=== PATIENT | female | born 1970 | race Two or more races ===

== ENCOUNTER 2020-05-06 13:32 | Inpatient (IN) | payer MEDICAID, OTHER ==
[~2020-05-06] VITALS: Ht 162.6 cm; Wt 166.0 kg
[~2020-05-06 13:32] MED LIST: Folic Acid PO; LACT1CAP72 PO; LEVO175T2 PO; METF-440 PO; PANT40TA2 PO; RISP0.5T9 PO
--- NOTE | 2020-05-06 13:32 | NUR ---
PT BIBRA FROM [facility] C/O CHEST PAIN WHILE ON DIALYSIS. PT IS AAOX3, NOT IN RESPIRATORY DISTRESS, HOOKED TO OFFICE ELECTRICIAN, KEPT RESTED AND COMFORTABLE. WILL CONTINUE TO MONITOR.
--- NOTE | 2020-05-06 13:35 | NUR ---
PT SEEN AND EXAMINED BU .
--- NOTE | 2020-05-06 13:40 | NUR ---
RT AT BEDSIDE FOR VENT SET UP.
--- NOTE | 2020-05-06 13:45 | NUR ---
IV LINE ESTABLISHED BLOOD DRAWN AND SENT TO LAB.
[2020-05-06 13:48] LABS: BASOPHILS % (AUTO) 0.7 % (0.0-2.0); EOSINOPHILS % (AUTO) 4.4 % (0.0-6.0); HEMATOCRIT 36 % (33-45); HEMOGLOBIN 11.2 g/dL (11.5-14.8); LYMPHOCYTES # (AUTO) 1.2 /CMM (0.8-4.8); LYMPHOCYTES % (AUTO) 22.2 % (20.0-44.0); MEAN CORPUSCULAR HGB CONC 32 g/dl (31.0-36.0); MEAN CORPUSCULAR VOLUME 99 fL (82-100); MONOCYTES # (AUTO) 0.3 /CMM (0.1-1.30); NEUTROPHILS # (AUTO) 3.6 /CMM (1.8-8.9); NEUTROPHILS % (AUTO) 67.7 % (43.0-81.0); PLATELET COUNT (AUTO) 203 /CMM (150-450); WHITE BLOOD COUNT (AUTO) 5.3 K/uL (4.3-11.0)
[2020-05-06 13:57] LABS: CALCIUM, SERUM 8.3 mg/dL (8.5-10.1); CARBON DIOXIDE 23 mmol/L (21-32); CHLORIDE 97 mmol/L (98-107); CREATININE 4.5 mg/dL (0.6-1.3); GLUCOSE 155 mg/dL (74-106); POTASSIUM 5.1 mmol/L (3.5-5.1); SODIUM SERUM 131 mmol/L (136-145); UREA NITROGEN, BLOOD 37 mg/dL (7-18)
--- NOTE | 2020-05-06 14:00 | NUR ---
RT RECD PT FROM DIALYSIS CAME IN FOR CP TRACHED SHILEY 6 INTACT + SECURED WITH SPEAKING VALVE ON PT AWAKE ALERT ORIENTED SPEAKING ON A VENT RECD ON FOLLOWING SETTING OF AC 20 500 +5 3LM PLACED ON [facility] VENT WITH FACILITY ORDERED SETTING CALLED TO VERIFY WITH CHART OF AC 20 450 +5 40% PLACED ON VENT SPEAKING MODE WITH NO PEEP PER VENT SETTINGS DISABLED LOW VOLUME ALARMS DUE TO PT SPEAKING + PMV ON. OTHER ALARMS ON AND AUDIBLE BAG AND MASK AT HOB NO RESP DISTRESS ATT WILL CONT TO MONITOR Addendum: 05/06/20 at 1536 by PARISH JOSE RT Amended: Links added.
--- NOTE | 2020-05-06 14:04 | NUR ---
SHIRT SORTER AT BEDSIDE FOR XRAY.
[2020-05-06 14:10] LABS: B-TYPE NATRIURETIC PEPTIDE 7073 PG/ML (0-125)
--- NOTE | 2020-05-06 14:10 | NUR ---
AT BEDSIDE FOR EVAL.
[2020-05-06] MEDS ORDERED: NITROGLYCERIN PACKET 1 GM PACKET TD ONE (14:30)
[2020-05-06] MEDS ORDERED: ASPIRIN 325 MG TABLET PO ONE (14:30)
[2020-05-06] MEDS ORDERED: HEPA50007 SQ (14:31)
[2020-05-06] MEDS ORDERED: DIPH25CA51 PO (14:31)
[2020-05-06] MEDS ORDERED: HYDR-4384 PO (14:31)
[2020-05-06] MEDS ORDERED: ESCI10TA PO (14:31)
[2020-05-06] MEDS ORDERED: ACET-868 PO (14:31)
[2020-05-06] MEDS ORDERED: EPOE1000 SQ (14:31)
[2020-05-06] MEDS ORDERED: BISA10SU11 RC (14:31)
[2020-05-06] MEDS ORDERED: LISI-603 PO (14:31)
[2020-05-06] MEDS ORDERED: METO25TA20 PO (14:31)
[2020-05-06] MEDS ORDERED: COLL30OI TP (14:31)
[2020-05-06] MEDS ORDERED: AMIN30LI2 PO (14:31)
[2020-05-06] MEDS ORDERED: CRAN450C PO (14:31)
[2020-05-06] MEDS ORDERED: FERR325T23 PO (14:31)
[2020-05-06] MEDS ORDERED: SEVE800T28 PO (14:31)
[2020-05-06] MEDS ORDERED: NA P133E RC (14:31)
[2020-05-06] MEDS ORDERED: FAMO20TA8 PO (14:31)
[2020-05-06] MEDS ORDERED: LORA-259 PO (14:31)
[2020-05-06] MEDS ORDERED: FOLI0.8T23 PO (14:31)
[2020-05-06] MEDS ORDERED: LEVO175T7 PO (14:31)
[2020-05-06] MEDS ORDERED: HYDR-4354 PO (14:31)
[2020-05-06] MEDS ORDERED: IPRA3AMP23 IH ×2 (14:31)
[2020-05-06] MEDS ORDERED: INSU100V27 SQ (14:31)
[2020-05-06] MEDS ORDERED: POLY17PO4 PO (14:31)
[2020-05-06] MEDS ORDERED: ASPIRIN 325 MG TABLET ONE (14:45)
[2020-05-06] MEDS ORDERED: NITROGLYCERIN PACKET 1 GM PACKET ONE (14:45)
--- NOTE | 2020-05-06 15:12 | NUR ---
COVID SWAB OBTAINED AND SENT TO LAB.
--- NOTE | 2020-05-06 15:20 | NUR ---
called [facility] for panel admission
[2020-05-06] MEDS ORDERED: ACETAMINOPHEN 325 MG TABLET PO PRN (15:30)
[2020-05-06] MEDS ORDERED: LORAZEPAM 0.5 MG TABLET PO PRN (15:30)
[2020-05-06] MEDS ORDERED: ONDANSETRON HCL/PF 4 MG/2 ML VIAL IVP PRN (15:30)
[2020-05-06] MEDS ORDERED: ZOLPIDEM TARTRATE 5 MG TABLET PO PRN (15:30)
[2020-05-06] MEDS ORDERED: Z GUARD REMEDY 2 OZ OINT TP PRN (15:30)
--- NOTE | 2020-05-06 16:09 | NUR ---
NEGATIVE COVID RESULT
--- NOTE | 2020-05-06 16:47 | NUR ---
TELE OVERFLOW 264
[2020-05-06] MEDS: METOPROLOL TARTRATE 25 MG TABLET PO SCH (17:00)
--- NOTE | 2020-05-06 18:00 | NUR ---
REPORT GIVEN TO MAX KING FOR PANTERA.
[2020-05-06 18:53] VITALS: BP 109/37
--- NOTE | 2020-05-06 19:04 | NUR ---
RN NOTE 1845: Received patient from ER, with trache to vent. No respiratory distress noted. VS taken, stable, afebrile. RAC PIV intact. Patient is A/Ox3. RO ACS, no CP at this time, awaiting repeat Trop. HD nurse in the unit, patient to have HD tomorrow. Noted 385 lbs, [facility] to bed with multiple people, patient tolerated. Endorsed care to incoming nurse for full assessment and admitting protocol.
--- NOTE | 2020-05-06 19:10 | NUR ---
RN OPENING NOTES RECEIVED PT IN BED. FULL CODE. A/O X3. ON TRACH AND MECHANICAL VENTILATION TOLERATING SETTINGS WELL. NO SOB OR RESPIRATORY DISTRESS NOTED. ISOLATION PRECAUTIONS IN PLACE FOR R/O COVID. SB ON TELE MONITOR. RCW HD CATH AND RAC#20 INTACT AND FLUSHED. PER AM RN 1700 AND 1800 MEDS NOT GIVEN, WILL GIVE. SAFETY MEASURES IN PLACE. WILL CONTINUE TO MONITOR.
--- NOTE | 2020-05-06 19:20 | NUR ---
RN NOTE CALLED PHARMACY REGARDING 1700 AND 1800 MEDS BEING GIVEN LATE DUE TO PT NOT BEING IN UNIT. PHARMACY SAID OK TO GIVE LATE.
--- NOTE | 2020-05-06 19:38 | NUR ---
RN NOTE NO DIET ORDER. PAGED EPIC TELECOMMUNICATIONS OFFICER. SPOKE WITH TAPAN WHO ORDERED CARDIAC DIET. ORDER NOTED AND CARRIED OUT.
[2020-05-06] MEDS: FERROUS SULFATE (325 MG) 325 MG/TAB TABLET PO SCH (19:51)
[2020-05-06] MEDS: SEVELAMER CARBONATE 800 MG TABLET PO SCH (19:52)
--- NOTE | 2020-05-06 19:53 | NUR ---
RN NOTE 1700 DOSE OF METOPROLOL HELD DUE TO LOW HR OF 55.
[2020-05-06 20:00] VITALS: BP 139/67
--- NOTE | 2020-05-06 20:42 | NUR ---
RN NOTE: Pt stated she wants to leave AMA. Explained risks of leaving AMA and still wants to leave. Explained that she needs to arrange transport in order to leave. CN and distribution warehouse manager aware.
[2020-05-06] MEDS: HEPARIN SODIUM, PORCINE 5000 UNITS/1 ML VIAL SQ SCH (21:20)
[2020-05-06] MEDS: ATORVASTATIN 10 MG TABLET PO SCH (21:20)
--- NOTE | 2020-05-07 00:19 | NUR ---
RN NOTE PT REFUSED BP CUFF FOR 0000 VITALS. EXPLAINED RISKS AND IMPORTANCE OF MONITORING BP. PT NON COMPLIANT. WILL CONTINUE TO MONITOR.
[2020-05-07 02:08] LABS: BASOPHILS % (AUTO) 0.6 % (0.0-2.0); EOSINOPHILS % (AUTO) 4.1 % (0.0-6.0); HEMATOCRIT 34 % (33-45); HEMOGLOBIN 10.9 g/dL (11.5-14.8); LYMPHOCYTES # (AUTO) 1.3 /CMM (0.8-4.8); LYMPHOCYTES % (AUTO) 23.8 % (20.0-44.0); MEAN CORPUSCULAR HGB CONC 32 g/dl (31.0-36.0); MEAN CORPUSCULAR VOLUME 97 fL (82-100); MONOCYTES # (AUTO) 0.3 /CMM (0.1-1.30); MONOCYTES % (AUTO) 5.1 % (2.0-12.0); NEUTROPHILS # (AUTO) 3.7 /CMM (1.8-8.9); NEUTROPHILS % (AUTO) 66.4 % (43.0-81.0); PLATELET COUNT (AUTO) 211 /CMM (150-450); RED BLOOD CELL COUNT(AUTO) 3.51 MIL/uL (4.0-5.2); WHITE BLOOD COUNT (AUTO) 5.5 K/uL (4.3-11.0)
[2020-05-07 02:20] LABS: CALCIUM, SERUM 7.8 mg/dL (8.5-10.1); CREATININE 5.2 mg/dL (0.6-1.3); MAGNESIUM 1.8 mg/dL (1.8-2.4); PHOSPHORUS 4.9 mg/dL (2.5-4.9); POTASSIUM 5.1 mmol/L (3.5-5.1)
[2020-05-07 04:00] VITALS: BP 136/74
--- NOTE | 2020-05-07 04:48 | NUR ---
RN NOTE: Transferred pt via ACLS protocol to room 102 w/ RT. Pt in stable condition, hooked up to tele monitor and oriented to room.
[2020-05-07] MEDS: HEPARIN SODIUM, PORCINE 5000 UNITS/1 ML VIAL SQ SCH ×3 (05:33→21:05)
--- NOTE | 2020-05-07 06:45 | NUR ---
RN CLOSING NOTE PT IS CURRENTLY RESTING IN BED. VSS. NO SIGNS OF SOB OR RESPIRATORY DISTRESS. NO SIGNIFICANT CHANGES. IV SITES KEPT CLEAN AND DRY. NEEDS ATTENDED. WILL ENDORSE ONCOMING NURSE FOR CONTINUATION OF CARE. MEDS GIVEN ORDERED.
--- NOTE | 2020-05-07 07:15 | NUR ---
RN OPENING NOTES RECEIVED PT RESTING IN BED. A/O X3. ON TRACH AND MECHANICAL VENTILATION SHAILAY:6, AC: 20, TV: 450, FIO2: 50% PEEP: 5. NO SOB OR RESPIRATORY DISTRESS NOTED. SR ON TELE MONITOR. WITH RCW HD CATH. RAC #20 DRY AND PATENT. ISOLATION PRECAUTIONS IN PLACE FOR R/O COVID. SAFETY MEASURES OBSERVED. CALL LIGHT WITHIN REACH, BED LOCKED AND AT LOWEST POSITION. WILL CONTINUE TO MONITOR
[2020-05-07 08:00] VITALS: BP 129/69
[2020-05-07] MEDS: SEVELAMER CARBONATE 800 MG TABLET PO SCH ×4 (08:00→18:26)
[2020-05-07] MEDS: FAMOTIDINE (20 MG) 20 MG TABLET PO SCH (08:40)
[2020-05-07] MEDS: FERROUS SULFATE (325 MG) 325 MG/TAB TABLET PO SCH ×2 (08:40→17:05)
[2020-05-07] MEDS: POLYETHYLENE GLYCOL 3350 17 GM POWD.PACK PO SCH (08:40)
[2020-05-07] MEDS: ESCITALOPRAM OXALATE (10 MG) 10 MG TABLET PO SCH (08:41)
[2020-05-07] MEDS: LEVOTHYROXINE SODIUM 175 MCG TABLET PO SCH (08:41)
[2020-05-07] MEDS: ASPIRIN 81 MG TAB.CHEW PO SCH (08:42)
--- NOTE | 2020-05-07 09:01 | NUR ---
WOUND CARE CONSULT: REVIEWED CHART, NURSING DOCUMENTATION AND PHOTOS WHICH INDICATE SCARRING TO SACRAL/BUTTOCKS/THIGH AREAS AND OPEN WOUND TO CHEST/ABDOMEN AREA, PRESENT ON ADMISSION. RECOMMEND SURGICAL CONSULT. DR RAMIREZ NOTIFIED OF CONSULT REQUEST. FIRST STEP LOW AIRLOSS MATTRESS IS ON ORDER. RECOMMENDATIONS MADE FOR SKIN PROTECTION. DISCUSSED WITH NURSING STAFF. MD IN AGREEMENT WITH PLAN OF CARE.
[2020-05-07] MEDS: LISINOPRIL (20MG) 20 MG TABLET PO SCH (09:43)
[2020-05-07] MEDS: METOPROLOL TARTRATE 25 MG TABLET PO SCH ×2 (09:44→17:06)
--- NOTE | 2020-05-07 11:20 | NUR ---
RN NOTES SEEN BY MS. PATINO, NO NEW ORDERS AT THIS TIME
[2020-05-07 12:00] VITALS: BP 120/61
--- NOTE | 2020-05-07 13:53 | NUR ---
DR ARGUELLO ORDERED TO TRANSFER PATIENT TO
--- NOTE | 2020-05-07 15:20 | NUR ---
RN NOTES INFORMED MS. PATINO REGARDING PT REFUSING AFTERNOON MEDICATION SUCH HEPARIN AND RENVELA. ALSO INFORMED ABOUT POSSIBLE TRANSFER TO [facility]. NO NEW ORDERS
[2020-05-07 16:00] VITALS: BP 105/56
--- NOTE | 2020-05-07 16:42 | NUR ---
RN NOTES DIALYSIS DONE. 2L OUT TOLERATED WELL. LATEST BP: 115/45. WILL CONTINUE TO MONITOR
--- NOTE | 2020-05-07 18:12 | NUR ---
RT at 17:45 Patient is transported from [facility] to 3rd floor Room 320-2. Ambu bag and spare trach brought along on transport and left at bedside in room 320-2. Pt alert and verbal. No respiratory distress or SOB noted at this time. Ventilator plugged into red socket. Alarms on and audible. Addendum: 05/07/20 at 1818 by MICHAEL GASTELUM RT Amended: Links added.
[2020-05-07] MEDS: NEOMY SULF/BACITRAC ZN/POLY 15 GM TUBE TP SCH (18:14)
[2020-05-07 18:15] VITALS: BP 125/55
--- NOTE | 2020-05-07 18:15 | NUR ---
TRANSFERRED TO ROOM 320-2 ASSISTED BY 2 RN, SWITCHBOARD CLERK AND RT VIA ACLS PROTOCOL. TOLERATED WELL. GAVE BEDSIDE REPORT TO HUMBERTO SANTANA.
--- NOTE | 2020-05-07 18:46 | NUR ---
CUSTOMS COMPLIANCE SPECIALIST NOTES PT TRANSFERRED FROM [facility] ROOM 102 TO ROOM 320-2 VIA HOSPITAL BED @ 1800 ACCOMPANIED BY [facility] RN EUN ROSE AND RESPIRATORY THERAPIST. PT IS A/O X3. ABLE TO MAKE NEEDS KNOWN, DENIES PAIN AT THIS TIME. HOB KEPT ELEVATED. PT ON MECHANICAL VENTILATOR WITH SHILEY #6 AT PRESCRIBED PARAMETERS OF AC 20, TV 450, FI02 40% AND PEEP 5, TOLERATING SETTINGS WELL WITH NO ACUTE DISTRESS NOTED. PT ON TELEMONITORING WITH CURRENT READING OF SR AND HR ON THE 60'S, NO C/O CARDIAC DISTRESS VOICED AT THIS TIME. HD CATHETER ON RCW IN PLACE, DRESSING C/D/I. IV SL NOTED AT RAC G# 20 INTACT, PATENT AND FLUSHES WELL. SAFETY MEASURES INITIATED: BED PLACED IN LOWEST LOCKED POSITION WITH SIDE-RAILS UP X3. BED ALARM ON AND CALL LIGHT WITHIN EASY REACH OF PT. CALLED [facility] BED FOR PT AND WAS TOLD THAT THEY WILL DELIVER THE BED TOMORROW. WILL ENDORSED TO CONTRACT DRIVER NURSE FOR PANTERA.
--- NOTE | 2020-05-07 19:50 | NUR ---
RAIL DETECTOR CAR OPERATOR OPENING NOTES RECEIVED PATIENT FROM MORNING SHIFT, ALERT AND ORIENTED X 3. VERBALLY RESPONSIVE AND ABLE TO FOLLOW DIRECTIONS. BREATHING REGULAR AND UNLABORED ON OXYGEN VIA MECHANICAL VENT. TRACH INTACT AND PATENT, LATEST SPO2 100%. ON CARDIAC MONITORING WITH NSR AT 70bpm. RIGHT AC20 IV LINE INTACT AND PATENT, FLUSHING WELL WITH NO BLEEDING OR S/S OF INFILTRATION ON SITE NOTED. RIGHT UPPER CHEST PERMACATH INTACT WITH NO BLEEDING SEEN. DENIES SUICIDAL IDEATION OR PAIN/DISCOMFORT AT THIS TIME. BED LOW AND LOCKED ON SEMI FOWLERS POSITION. CALL LIGHT IN REACH. WILL CONTINUE TO MONITOR.
[2020-05-07 20:00] VITALS: BP 120/59
[2020-05-07] MEDS: ATORVASTATIN 10 MG TABLET PO SCH (21:03)
--- NOTE | 2020-05-07 23:29 | NUR ---
RT NOTE Pt rec'd [facility] on [facility] on AC mode. Pt shows no signs of resp distress or sob. Trach is patent and secured. Pt awake and alert. Sx'd for thick small amt of yellow secretions. Alarms are set and audible. Ambu bag and emergency spare trach bedside. Vent plugged into red outlet. Will continue to monitor. Addendum: 05/07/20 at 2331 by RIVKA BRUNO RT Amended: Links added.
[2020-05-08] VITALS: BP 116/52
[2020-05-08 04:00] VITALS: BP 116/66
[2020-05-08] MEDS: HEPARIN SODIUM, PORCINE 5000 UNITS/1 ML VIAL SQ SCH ×2 (05:04→14:23)
--- NOTE | 2020-05-08 06:35 | NUR ---
LUMBER ESTIMATOR CLOSING NOTES PATIENT IN BED, ALERT AND ORIENTED X 3. AFEBRILE WITH NO S/S OF DISTRESS OBSERVED. TRACH INTACT AND PATENT CURRENT VENT SETTINGS TOLERATING WELL, LATEST SPO2 100%. MAINTAINED ON CARDIAC MONITORING WITH NSR AT 67bpm. RIGHT AC20 IV LINE PATENT AND FLUSHING WELL. NO COMPLAINTS OF PAIN/DISCOMFORT REPORTED THE WHOLE SHIFT. ON CONTACT ISOLATION FOR MRSA NARES, PROPER HAND WASHING AND ISOLATION PRECAUTIONS OBSERVED. BED LOW AND LOCKED ON SEMI FOWLERS POSITION. CALL LIGHT IN REACH. WILL ENDORSE TO MORNING SHIFT FOR PANTERA.
--- NOTE | 2020-05-08 07:30 | NUR ---
COAT REPAIR INSPECTOR NOTES PT IN BED, AWAKE, ALERT AND ORIENTED, RESPIRATIONS NORMAL, NOT IN DISTRESS, NO COMPLAINT OF PAIN OR ANY DISCOMFORT, CALL LIGHT WITHIN REACH, ASSISTED WITH BREAKFAST TRAY, KEPT COMFORTABLE.
--- NOTE | 2020-05-08 08:30 | NUR ---
KILN STACKER NOTES PT WOULD LIKE TO TAKE HER MORNING MEDS AT A LATER TIME.
[2020-05-08] MEDS: POLYETHYLENE GLYCOL 3350 17 GM POWD.PACK PO SCH (09:00)
[2020-05-08] MEDS: ESCITALOPRAM OXALATE (10 MG) 10 MG TABLET PO SCH (10:20)
[2020-05-08] MEDS: ASPIRIN 81 MG TAB.CHEW PO SCH (10:20)
[2020-05-08] MEDS: SEVELAMER CARBONATE 800 MG TABLET PO SCH ×3 (10:20→17:15)
[2020-05-08] MEDS: FAMOTIDINE (20 MG) 20 MG TABLET PO SCH (10:20)
[2020-05-08] MEDS: METOPROLOL TARTRATE 25 MG TABLET PO SCH ×2 (10:21→17:15)
[2020-05-08] MEDS: LEVOTHYROXINE SODIUM 175 MCG TABLET PO SCH (10:21)
[2020-05-08] MEDS: LISINOPRIL (20MG) 20 MG TABLET PO SCH (10:21)
[2020-05-08] MEDS: FERROUS SULFATE (325 MG) 325 MG/TAB TABLET PO SCH ×2 (10:24→17:15)
[2020-05-08] MEDS: NEOMY SULF/BACITRAC ZN/POLY 15 GM TUBE TP SCH (10:29)
--- NOTE | 2020-05-08 12:00 | NUR ---
SIGNAL MAINTAINER NOTES PT IN BED, AWAKE, ALERT AND ORIENTED, NO COMPLAINT OF PAIN OR ANY DISCOMFORT, NOT IN DISTRESS, SEEN BY DR. PATINO, DISCHARGE PLAN DISCUSSED WITH PT, VERBALIZED UNDERSTANDING, DUE MEDS GIVEN, PT TOLERATES CURRENT DIET.
[2020-05-08 17:15] VITALS: BP 131/62
--- NOTE | 2020-05-08 19:05 | NUR ---
CUT OFF SAW TENDER METAL NOTES PT IN BED, AWAKE, ALERT AND ORIENTED, NO COMPLAINT AT THIS TIME, RESPIRATIONS NORMAL, DISCHARGE AND MEDICATION INSTRUCTIONS PROVIDED TO PT, VERBALIZED UNDERSTANDING, REPORT GIVEN TO KEIRA SANTANA OF [facility], PM CARE PROVIDED, BELONGINGS ACCOUNTED FOR, DISCHARGE PHOTOS DONE, ONLY PARTIAL PHOTO TAKEN ON THE BUTTOCKS AND SACRAL AREA, PT UNABLE TO TOLERATE TURNING ON HER SIDE FOR A LONG TIME, AMBULANCE PERSONNEL ARRIVED WITH RT, PREPARING TO TRANSPORT PATIENT.
--- NOTE | 2020-05-08 19:16 | NUR ---
MACHINING ENGINEER NOTES PT PICKED UP BY AMBULANCE PERSONNEL VIA [facility], LEFT IN STABLE CONDITION, INDERJIT NURSE AT [facility] INFORMED.
== END 2020-05-08 19:20 | DRG 198 ==
LOC: ER 13:45 → ICU 17:08 → TELE1 05-07 03:37 → TELE 05-07 17:34
PROVIDERS: ADMIT Nurse Practitioner Acute Care; ATTEND Nurse Practitioner Acute Care
PROC: 5A1945Z Respiratory Ventilation, 24-96 Consecutive Hours (ICD-10-PCS; principal; 2020-05-06)
PROC: 5A1D70Z Performance of Urinary Filtration, Intermittent, Less than 6 Hours Per Day (ICD-10-PCS; 2020-05-07)
DX: I25.10 Atherosclerotic heart disease of native coronary artery without angina pectoris (principal); E03.9 Hypothyroidism, unspecified; E87.1 Hypo-osmolality and hyponatremia; F20.9 Schizophrenia, unspecified; E66.2 Morbid (severe) obesity with alveolar hypoventilation; E11.42 Type 2 diabetes mellitus with diabetic polyneuropathy; E11.22 Type 2 diabetes mellitus with diabetic chronic kidney disease; N18.6 End stage renal disease; Z99.2 Dependence on renal dialysis; I12.0 Hypertensive chronic kidney disease with stage 5 chronic kidney disease or end stage renal disease; D68.59 Other primary thrombophilia; J96.11 Chronic respiratory failure with hypoxia; Z59.0 Homelessness; Z79.4 Long term (current) use of insulin; Z99.11 Dependence on respirator [ventilator] status; Z79.899 Other long term (current) drug therapy; E53.8 Deficiency of other specified B group vitamins; D63.8 Anemia in other chronic diseases classified elsewhere; Z79.01 Long term (current) use of anticoagulants; Z79.51 Long term (current) use of inhaled steroids; N25.0 Renal osteodystrophy; R79.89 Other specified abnormal findings of blood chemistry; L89.159 Pressure ulcer of sacral region, unspecified stage; L89.329 Pressure ulcer of left buttock, unspecified stage; L89.319 Pressure ulcer of right buttock, unspecified stage; L90.5 Scar conditions and fibrosis of skin; S21.002A Unspecified open wound of left breast, initial encounter; X58.XXXA Exposure to other specified factors, initial encounter; Y92.9 Unspecified place or not applicable; F29 Unspecified psychosis not due to a substance or known physiological condition; Z68.44 Body mass index [BMI] 60.0-69.9, adult
CPT/HCPCS: 31720; 36415; 71045-TC; 80048-TC; 80061-TC; 83735-TC; 83880; 84100-TC; 84439-TC; 84443-TC; 84484-TC; 85025-TC; 85610-TC; 86706; 87081-TC; 87340; 90935-TC; 93307-TC; 93970-TC; 94002-TC; 94003-TC; 94760-TC; 94799-TC; 99082-TC; A4623; A6253; A7526; C9803-CS; G0378; J1644; U0003-CS

== ENCOUNTER 2020-06-05 13:39 | Inpatient (IN) | payer MEDICAID ==
[~2020-06-05] VITALS: Ht 162.6 cm; Wt 164.7 kg
[2020-06-05] VITALS (21 sets, daily range): BP systolic 47–148; BP diastolic 23–73
[~2020-06-05 13:39] MED LIST changes: +ACET-868 PO; +AMIN30LI2 PO; +BISA10SU11 RC; +COLL30OI TP; +CRAN450C PO; +DIPH25CA51 PO; +EPOE1000 SQ; +ESCI10TA PO; +FAMO20TA8 PO; +FERR325T23 PO; +FOLI0.8T23 PO; -Folic Acid PO; +HEPA50007 SQ; +HYDR-4354 PO; +HYDR-4384 PO; +INSU100V27 SQ; +IPRA3AMP23 IH; -LACT1CAP72 PO; -LEVO175T2 PO; +LEVO175T7 PO; +LISI-603 PO; +LORA-259 PO; -METF-440 PO; +METO25TA20 PO; +NA P133E RC; -PANT40TA2 PO; +POLY17PO4 PO; -RISP0.5T9 PO; +SEVE800T28 PO
--- NOTE | 2020-06-05 14:05 | NUR ---
Patient awake alert tract vented per Report Low BP ,hooked in the monitor ,gown RT @ bedside .
--- NOTE | 2020-06-05 14:25 | NUR ---
Noted patient haslesion to Rt abd. refuse to removed dressing left arm contrated .
--- NOTE | 2020-06-05 14:51 | NUR ---
MARTA MUNIZ ([phone]) - RESP THERAPIST OF PATIENT, PLS CALL WHEN PATIENT IS COMING BACK TO THE FACILITY. DE CARE: [phone]
--- NOTE | 2020-06-05 15:15 | NUR ---
Patient is difficult IV ,call Tj Lopez RN @ bedside obtained RAC @) and oabtined blood send to . lab
[2020-06-05 15:20] LABS: BASOPHILS % (AUTO) 0.6 % (0.0-2.0); EOSINOPHILS % (AUTO) 2.7 % (0.0-6.0); HEMATOCRIT 32 % (33-45); HEMOGLOBIN 10.1 g/dL (11.5-14.8); LYMPHOCYTES # (AUTO) 1.1 /CMM (0.8-4.8); MEAN CORPUSCULAR HGB CONC 32 g/dl (31.0-36.0); MEAN CORPUSCULAR VOLUME 99 fL (82-100); MONOCYTES # (AUTO) 0.4 /CMM (0.1-1.30); MONOCYTES % (AUTO) 7.2 % (2.0-12.0); NEUTROPHILS # (AUTO) 4.3 /CMM (1.8-8.9); NEUTROPHILS % (AUTO) 71.5 % (43.0-81.0); PLATELET COUNT (AUTO) 183 /CMM (150-450); RED BLOOD CELL COUNT(AUTO) 3.22 MIL/uL (4.0-5.2)
--- NOTE | 2020-06-05 15:26 | NUR ---
MD at bedside made aware patient refusing sales cath.
[2020-06-05 15:29] LABS: CALCIUM, SERUM 7.9 mg/dL (8.5-10.1); CARBON DIOXIDE 19 mmol/L (21-32); CHLORIDE 99 mmol/L (98-107); CREATININE 5.8 mg/dL (0.6-1.3); GLUCOSE 182 mg/dL (74-106); POTASSIUM 4.2 mmol/L (3.5-5.1); SODIUM SERUM 131 mmol/L (136-145); UREA NITROGEN, BLOOD 45 mg/dL (7-18)
[2020-06-05] MEDS ORDERED: IV NS 0.9% 1,000 ML IV ONE (15:30)
[2020-06-05 15:35] LABS: ALANINE AMINOTRANSFERASE 23 U/L (12-78); ALBUMIN 2.2 g/dL (3.4-5.0); ALKALINE PHOSPHATASE 383 U/L (46-116); ASPARTATE AMINOTRANSFERASE 21 U/L (15-37); BILIRUBIN,DIRECT 0.3 mg/dL (0.0-0.2); BILIRUBIN,TOTAL 0.5 mg/dL (0.2-1.0); TOTAL PROTEIN, SERUM 7.2 g/dL (6.4-8.2)
--- NOTE | 2020-06-05 15:53 | NUR ---
Patient Vet setting AC 16 ,450,30 %,peep of 5 ,99 % patient tolerated @ this time .Patient refused sales cath to obtained urine ,she refused to change dressing on her lesion to abdomen ,she refused to turn explained importance @ bedside are the 2 student Nurses Karen Gould,Castillo Mckinney . from [facility] as witness Thank you
--- NOTE | 2020-06-05 16:00 | NUR ---
Patient RAC IV noted blood return IVP infusing well .
--- NOTE | 2020-06-05 16:09 | NUR ---
Covid swab obtained and send to lab .
--- NOTE | 2020-06-05 16:23 | NUR ---
[facility] OVERFLOW 254
--- NOTE | 2020-06-05 16:41 | NUR ---
Called report patient to Wendy SANTANA [phone]
--- NOTE | 2020-06-05 17:17 | NUR ---
Transfer patient to [address] with monitor ,patient asleep but arousable non distress @ this time .
--- NOTE | 2020-06-05 17:20 | NUR ---
RN INITIAL NOTES RECEIVED PT AWAKE, A/OX3. TRACH IN PLACE, ON VENT. NO RESPIRATORY DISTRESS NOTED. NO SOB NOTED. DENIES ANY PAIN. RIGHT PERMACATH IN PLACE. PIV LINE IN PLACE. BODY ASSESSMENT DONE, PICTURES TAKEN AND PLACED IN THE CHART. CLEAN AND DRY. BLE ELEVATED. CALLED DR MCMULLEN FOR ADMISSION ORDERS. WILL MONITOR
[2020-06-05] MEDS ORDERED: Z GUARD REMEDY 2 OZ OINT TP PRN (18:30)
[2020-06-05] MEDS ORDERED: LORAZEPAM 1 MG TABLET PO PRN (18:30)
[2020-06-05] MEDS ORDERED: ACETAMINOPHEN 325 MG TABLET PO PRN ×2 (18:30)
[2020-06-05] MEDS ORDERED: ONDANSETRON HCL/PF 4 MG/2 ML VIAL IVP PRN (18:30)
[2020-06-05] MEDS ORDERED: Medication Not On Formulary EA (Ipratropium/Albuterol Sulfate (Duoneb 2.5-0.5 Mg/3 Ml So IH PRN (18:30)
[2020-06-05] MEDS ORDERED: MAGNESIUM HYDROXIDE 30 ML UDC PO PRN (18:30)
[2020-06-05] MEDS ORDERED: ALBUTEROL FS 2.5 MG/0.5 ML VIAL.NEB NEB PRN ×2 (18:30)
[2020-06-05] MEDS ORDERED: BISACODYL SUPP (10 MG) 10 MG/SUPP.RECT SUPP.RECT RC PRN (18:30)
[2020-06-05] MEDS ORDERED: DEXTROSE 50%-WATER 50 ML DISP.SYRIN IV PRN (18:30)
[2020-06-05] MEDS ORDERED: MAG HYDROX/AL HYDROX/SIMETH 30 ML UDC PO PRN (18:30)
[2020-06-05] MEDS ORDERED: HYDROCODONE/APAP 5/325MG TABLET PO PRN (18:30)
[2020-06-05] MEDS ORDERED: diphenhydrAMINE HCL 25 MG CAPSULE PO PRN (18:30)
[2020-06-05] MEDS ORDERED: IPRATROPIUM NEB FS 0.5 MG/2.5 ML AMPUL.NEB NEB PRN (19:00)
--- NOTE | 2020-06-05 19:00 | NUR ---
RECEIVED PATIENT WITH TRACHEOSTOMY TO THE VENTILATOR ON AC MODE,BREATHING REGULAR AND NON LABORED SATURATING 97-99%. LETHARGIC/DROWSY BUT AROUSABLE ,JUST OPENS EYES WHEN AWAKENS THEN CLOSES BACK ,NO INTERCATION AT THIS TIME ,(PATIENT HYPOTENSIVE RIGHT NOW).WILL START ON LEVOPHED DRIP SOON AVAILABLE. CONSENT OBTAINED BY RN FROM FAMILY FOR PICC LINE INSERTION FOR PRESSORS ADMINISTRATION.WILL CLOSELY MONITOR. MAINTAIN ON CONTACT/ENHANCED DROPLET ISOLATION PENDING COVID TEST RESULT(PATIENT FROM SNF).
--- NOTE | 2020-06-05 19:00 | NUR ---
RN CLOSING NOTES PT NOTED WITH LOW BP. MD NOTIFIED, ORDERED LEVOPHED. PT REMAINS A/O. NO RESPIRATORY DISTRESS. HOB ELEVATED. KEPT COMFORTABLE. WILL ENDORSE FOR CONTINUITY OF CARE
[2020-06-05] MEDS: NOREPINEPHRINE 8 MG in IV NS 0.9% 242 ML IV PRN ×2 (19:17→21:18)
[2020-06-05] MEDS ORDERED: ALBUTEROL FS 2.5 MG/0.5 ML VIAL.NEB NEB SCH (19:30)
[2020-06-05] MEDS: ALBUTEROL FS 2.5 MG/0.5 ML VIAL.NEB NEB SCH (19:30)
[2020-06-05] MEDS ORDERED: Medication Not On Formulary EA (Ipratropium/Albuterol Sulfate (Duoneb 2.5-0.5 Mg/3 Ml So IH SCH (19:30)
[2020-06-05] MEDS: IPRATROPIUM NEB FS 0.5 MG/2.5 ML AMPUL.NEB NEB SCH (19:30)
[2020-06-05] MEDS: HEPARIN SODIUM, PORCINE 5000 UNITS/1 ML VIAL SQ SCH (21:25)
--- NOTE | 2020-06-05 21:30 | NUR ---
follwed up with the instant powder supervisor for the PICC LINE INSERTION, RESPONDED ,STATES SHE WILL CALL PICC LINE NURSE.
[2020-06-05] MEDS: BLOOD SUGAR DIAGNOSTIC 1 EACH STRIP VI SCH (22:12)
[2020-06-05] MEDS: INSULIN REGULAR, HUMAN 100 UNIT/ML 3 ML VIAL SQ PRN (22:13)
[2020-06-05] MEDS ORDERED: NOREPINEPHRINE 4 MG/4 ML AMPUL IV ONE (22:28)
--- NOTE | 2020-06-05 23:00 | NUR ---
PICC LINE AT BEDSIDE ATTEMPTING PICC LINE INSERTION BUT WAS UNSUCCESSFUL. TRIPLE LUMEN CATHETER INSERTED WITH EASE ,WITH NO COMPLICATION VIA LEFT IJ.
[2020-06-05] MEDS: NOREPINEPHRINE 32 MG in IV NS 0.9% 242 ML IV PRN (23:21)
[2020-06-06] VITALS (59 sets, daily range): BP systolic 82–154; BP diastolic 38–92
--- NOTE | 2020-06-06 | NUR ---
HAD AN EPISODE OF SUDDEN DESATURATION WHILE RT WAS SUCTIONING. FOUNND SOME THICK SECRETIONS( MUCUS PLUGGED. SATURATION IMPROVED AFTER SUCTIONING/LAVAGING BY RT.
[2020-06-06] MEDS: ALBUTEROL FS 2.5 MG/0.5 ML VIAL.NEB NEB SCH (01:30)
[2020-06-06] MEDS: IPRATROPIUM NEB FS 0.5 MG/2.5 ML AMPUL.NEB NEB SCH ×5 (01:30→20:11)
--- NOTE | 2020-06-06 01:30 | NUR ---
LEVOPHED OF .BP SYSTOLIC STAYING ABOVE 90.
--- NOTE | 2020-06-06 02:03 | NUR ---
RT NOTE Pt rec'd [facility] on AC mode. Pt shows no signs of resp distress or sob. Trach is patent and secured. Pt sx'd for thick SMALL amount of PALE yellow secretions. Alarms are set and audible. Vent plugged into red outlet. ambu bag and emergency spare trach is bedside. Will continue to monitor closely. Addendum: 06/06/20 at 0204 by RIVKA BRUNO RT Amended: Links added.
--- NOTE | 2020-06-06 04:00 | NUR ---
stable,bp stable off levophed ,awake,alert,follows commands ,not in any distress am care done. tolerated well
[2020-06-06 04:23] LABS: BASOPHILS % (AUTO) 0.4 % (0.0-2.0); EOSINOPHILS % (AUTO) 1.3 % (0.0-6.0); HEMATOCRIT 36 % (33-45); HEMOGLOBIN 11.3 g/dL (11.5-14.8); LYMPHOCYTES # (AUTO) 1.2 /CMM (0.8-4.8); LYMPHOCYTES % (AUTO) 17.3 % (20.0-44.0); MEAN CORPUSCULAR HGB CONC 32 g/dl (31.0-36.0); MEAN CORPUSCULAR VOLUME 97 fL (82-100); MONOCYTES # (AUTO) 0.4 /CMM (0.1-1.30); NEUTROPHILS # (AUTO) 5.4 /CMM (1.8-8.9); PLATELET COUNT (AUTO) 222 /CMM (150-450); RED BLOOD CELL COUNT(AUTO) 3.65 MIL/uL (4.0-5.2); WHITE BLOOD COUNT (AUTO) 7.2 K/uL (4.3-11.0)
[2020-06-06 04:34] LABS: CALCIUM, SERUM 8.2 mg/dL (8.5-10.1); MAGNESIUM 2.1 mg/dL (1.8-2.4); PHOSPHORUS 6.1 mg/dL (2.5-4.9); POTASSIUM 4.5 mmol/L (3.5-5.1)
[2020-06-06] MEDS: HEPARIN SODIUM, PORCINE 5000 UNITS/1 ML VIAL SQ SCH ×3 (05:23→21:05)
--- NOTE | 2020-06-06 07:00 | NUR ---
REMAINS STABLE, REPORT GIVEN TO TERRANCE SANTANA.
--- NOTE | 2020-06-06 07:15 | NUR ---
RN INITIAL NOTES RECEIVED PT ASLEEP, EASY TO AROUSE. TRACH IN PLACE, ON VENT. NO RESPIRATORY DISTRESS NOTED. NO SOB NOTED. HOB ELEVATED. NO SIGNS OF PAIN NOTED. PT COMFORTABLE. BLE ELEVATED. WILL MONITOR
[2020-06-06] MEDS: LEVOTHYROXINE SODIUM 175 MCG TABLET PO SCH (07:30)
--- NOTE | 2020-06-06 07:49 | NUR ---
WOUND CARE CONSULT: REVIEWED CHART, NURSING DOCUMENTATION AND PHOTOS WHICH INDICATE ABDOMINAL SCARRING, SACRAL SCARRING WHICH EXTENDS TO BUTTOCKS AND OPEN AREAS TO BUTTOCKS AND POSTERIOR THIGHS, PRESENT ON ADMISSION. RECOMMEND SURGICAL CONSULT DR RAMIREZ NOTIFIED OF CONSULT REQUEST. RECOMMENDATIONS MADE FOR SKIN PROTECTION. DISCUSSED WITH NURSING STAFF. PT TO BE PLACED ON LOW AIRLOSS BED. MD IN AGREEMENT WITH PLAN OF CARE.
[2020-06-06] MEDS: SEVELAMER CARBONATE 800 MG TABLET PO SCH ×3 (08:00→17:32)
[2020-06-06] MEDS: FAMOTIDINE (20 MG) 20 MG TABLET PO SCH (09:00)
[2020-06-06] MEDS: ESCITALOPRAM OXALATE (10 MG) 10 MG TABLET PO SCH (09:00)
[2020-06-06] MEDS: FERROUS SULFATE (325 MG) 325 MG/TAB TABLET PO SCH ×2 (09:00→16:34)
[2020-06-06] MEDS ORDERED: COLLAGENASE 30 GM TUBE TP SCH (09:00)
[2020-06-06] MEDS: BLOOD SUGAR DIAGNOSTIC 1 EACH STRIP VI SCH ×4 (09:17→22:02)
[2020-06-06 10:12] LABS: THYROID STIMULATING HORMONE 51.508 uIU/mL (0.358-3.74)
[2020-06-06] MEDS: ALBUTEROL SULFATE INH 18 GM HFA.AER.AD IH SCH ×3 (13:30→20:11)
[2020-06-06] MEDS: NOREPINEPHRINE 32 MG in IV NS 0.9% 242 ML IV PRN (18:16)
--- NOTE | 2020-06-06 18:27 | NUR ---
RN CLOSING NOTES NO SIGNIFICANT CHANGE NOTED. NO RESPIRATORY FAILURE DISTRESS NOTED. NO SOB NOTED. ISRAEL ANY PAIN. KEPT CLEAN AND DRY. KEPT COMFORTABLE. WILL MONITOR
--- NOTE | 2020-06-06 19:29 | NUR ---
RN OPENING NOTES THE CLIENT IS RESTING IN BED, A/O X4. VS WNL. NO S/S OF DISTRESS NOR PAIN , THE CLIENT DENIES PAIN. THE CLIENT IS ON VENTILATOR, SETTING CHARTED. THE CLIENT IS CURRENTLY UNDERGOING HEMODIALYSIS. TLC IJV, RAC, FLUSHING WELL. THE CLIENT IS TALKATIVE AND COOPERATIVE. WILL CONTINUE TO MONITOR.
--- NOTE | 2020-06-06 20:55 | NUR ---
PER RT, THEY ARE NOT ABLE TO PROVIDE THE BREATHING TREATMENT BECAUSE THE TREATMENT IS NOT AVAILABLE AT PHARMACY, WILL COMMUNICATE TO HOSPITALIST. THE CLIENT REMAINS VISIBLY STABLE, NO S/S RESPIRATORY DISTRESS, 02 SAT IS 100%.
--- NOTE | 2020-06-06 22:02 | NUR ---
insulin is not administered because the patient is NPO. Will continue to monitor the glucose. Glucose 166
--- NOTE | 2020-06-06 22:05 | NUR ---
the hospitalist is aware the the breathing treatment provided by RT is not available at pharmacy, as previously indicated by the RT Raul.
[2020-06-06] MEDS: INSULIN REGULAR, HUMAN 100 UNIT/ML 3 ML VIAL SQ PRN (22:09)
[2020-06-07] VITALS (78 sets, daily range): BP systolic 56–152; BP diastolic 29–99
[2020-06-07] MEDS: ALBUTEROL SULFATE INH 18 GM HFA.AER.AD IH SCH ×4 (01:30→20:21)
[2020-06-07] MEDS: IPRATROPIUM NEB FS 0.5 MG/2.5 ML AMPUL.NEB NEB SCH ×4 (01:43→19:30)
--- NOTE | 2020-06-07 02:34 | NUR ---
RT NOTE Pt rec'd trached on [facility] vent on AC mode. Pt shows no signs of resp distress or sob. Trach is patent and secured. Pt sx'd for thick SMALL amount of PALE yellow secretions. Alarms are set and audible. Vent plugged into red outlet. ambu bag and emergency spare trach is bedside. Will continue to monitor closely. Addendum: 06/07/20 at 0234 by RIVKA BRUNO RT Amended: Links added.
[2020-06-07 05:16] LABS: CALCIUM, SERUM 8.3 mg/dL (8.5-10.1); CREATININE 5.1 mg/dL (0.6-1.3); POTASSIUM 3.9 mmol/L (3.5-5.1)
[2020-06-07 05:20] LABS: BASOPHILS % (AUTO) 0.3 % (0.0-2.0); EOSINOPHILS % (AUTO) 0.8 % (0.0-6.0); HEMATOCRIT 36 % (33-45); HEMOGLOBIN 11.6 g/dL (11.5-14.8); LYMPHOCYTES # (AUTO) 1.5 /CMM (0.8-4.8); LYMPHOCYTES % (AUTO) 10.7 % (20.0-44.0); MEAN CORPUSCULAR HGB CONC 32 g/dl (31.0-36.0); MEAN CORPUSCULAR VOLUME 96 fL (82-100); MONOCYTES # (AUTO) 0.6 /CMM (0.1-1.30); MONOCYTES % (AUTO) 4.1 % (2.0-12.0); NEUTROPHILS # (AUTO) 11.6 /CMM (1.8-8.9); NEUTROPHILS % (AUTO) 84.1 % (43.0-81.0); PLATELET COUNT (AUTO) 255 /CMM (150-450); RED BLOOD CELL COUNT(AUTO) 3.79 MIL/uL (4.0-5.2); WHITE BLOOD COUNT (AUTO) 13.8 K/uL (4.3-11.0)
[2020-06-07] MEDS: HEPARIN SODIUM, PORCINE 5000 UNITS/1 ML VIAL SQ SCH ×3 (05:27→21:12)
--- NOTE | 2020-06-07 06:51 | NUR ---
RN CLOSING NOTES NO CHANGE OF CONDITION DURING THE SHIFT. THE CLIENT REMAINS STABLE WITH NO S/S OF DISTRESS NOR PAIN, THE CLIENT DENIES PAIN AT THIS TIME. CLIENT CONTINUE ON VENT SUPPORT. THE CLIENT CONTINUES TO RECEIVE LEVOPHED AT 0.08MCG. BP WNL. ALL SAFETY MECHANISMS IN PLACE, COMFORT MEASURES PROVIDED. WILL ENDORSE THE INCOMING NURSE FOR CONTINUITY OF CARE.
--- NOTE | 2020-06-07 07:45 | NUR ---
ICU/RN: INITIAL NOTES,AM RECEIVED REPORT FROM NIGHT NURSE. PT AWAKE, ALERT, FOLLOWS COMMANDS. PT TRACH TO VENT WITH SETTING ORDERED, NO ACUTE DISTRESS NOTED. SINUS ON TELE. LEVO INFUSING ORDERED, WILL TITRATE APPROPRIATE. CURRENTLY NPO, HOWEVER PER MD ABLE TO TAKE MEDS CRUSHED WITH APPLE SAUCE. LEFT IJ TLC PATENT AND INTACT, NO S/S OF INFECTION OR INFILTRATION NOTED. PT TURNED AND REPOSITIONED [id number] AND NEEDED. SKIN CARE ORDERED. ALL NEEDS WILL BE ATTENDED TO, BED IN LOW POSITION, SIDE RAILS UP, CALL LIGHT WITHIN REACH.
[2020-06-07] MEDS: BLOOD SUGAR DIAGNOSTIC 1 EACH STRIP VI SCH ×4 (08:09→22:04)
--- NOTE | 2020-06-07 08:30 | NUR ---
ICU/RN: JOSEFA POTTER. BP STABLE. WILL CONTINUE TO MONITOR Addendum: 06/07/20 at 1741 by GWEN LEMUS RN LEVO OFF AT 0845
[2020-06-07] MEDS: FAMOTIDINE (20 MG) 20 MG TABLET PO SCH (09:34)
[2020-06-07] MEDS: SEVELAMER CARBONATE 800 MG TABLET PO SCH ×3 (09:35→17:17)
[2020-06-07] MEDS: ESCITALOPRAM OXALATE (10 MG) 10 MG TABLET PO SCH (09:35)
[2020-06-07] MEDS: FERROUS SULFATE (325 MG) 325 MG/TAB TABLET PO SCH ×2 (09:35→17:17)
[2020-06-07] MEDS: LEVOTHYROXINE SODIUM 175 MCG TABLET PO SCH (09:35)
[2020-06-07] MEDS: HYDROCORTISONE SOD SUCCINATE 100 MG/2 ML VIAL IV SCH ×2 (09:40→17:17)
[2020-06-07] MEDS: *INSULIN REGULAR(HUMULIN R)HUM 100 UNIT/ML VIAL SQ PRN ×2 (09:41→12:28)
--- NOTE | 2020-06-07 18:41 | NUR ---
ICU/RN: LORRIE SIMPSON ATBEDSIDE. BLOOD CULTURE RESULTS RELAYED. PT ASSESSED.
--- NOTE | 2020-06-07 18:42 | NUR ---
ICU/RN ENDING NOTES,AM REPORT WILL BE ENDORSED TO NIGHT NURSE FOR PANTERA. ALL NEEDS ATTENDED TO. PT OFF LEVO AT 0845. VSS, BP STABLE. ALL NEEDS ATTENDED TO, SAFETY MEASURES TAKEN, BED IN LOW POSITION, SIDE RAILS UP, CALL LIGHT WITHIN REACH.
--- NOTE | 2020-06-07 19:30 | NUR ---
received the Client resting in bed. A/O x4, continues on full vent support. Off pressors. Verbal, denies pain, no s/s of pain. Vent settings as charted. On external Telemonitor, SR, VS WNL. All needs rendered at this time, safte mechanisms in place, will continue to monitor.
[2020-06-07] MEDS ORDERED: VANCOMYCIN 1 GM VIAL ONE (19:59)
--- NOTE | 2020-06-07 20:00 | NUR ---
the client refuses to blood draw for blood cultures.
[2020-06-07] MEDS: VANCOMYCIN 2 GM in IV D5W 500 ML IV ONE ×2 (20:23→20:34)
--- NOTE | 2020-06-07 20:23 | NUR ---
the vanco dose of 2g is being administered in separate doses, prepared by Ed the charge Nurse
--- NOTE | 2020-06-07 20:41 | NUR ---
RECEIVED PT AWAKE ALERT ON VENT. PT HAS SHLY 6 CUFFLESS TRACH. NO RESP DISTRESS NOTED. SX'D SMLL AMT OF WHITE SECRETIONS. VENT ALARMS SET AND AUDIBLE. AMBU BAG AT BESIDE. SPARE TRACH AT BEDSIDE. WILL CONTINUE TO MONITOR. Addendum: 06/07/20 at 204 by YESENIA ESPARZA RT Amended: Links added.
[2020-06-07] MEDS: MUPIROCIN OINT 2% 22 GM TUBE NS SCH (21:12)
[2020-06-07] MEDS: INSULIN REGULAR, HUMAN 100 UNIT/ML 3 ML VIAL SQ PRN (22:54)
[2020-06-08] VITALS (24 sets, daily range): BP systolic 118–147; BP diastolic 59–99
[2020-06-08] MEDS: ALBUTEROL SULFATE INH 18 GM HFA.AER.AD IH SCH ×3 (01:27→19:30)
[2020-06-08] MEDS: IPRATROPIUM NEB FS 0.5 MG/2.5 ML AMPUL.NEB NEB SCH ×4 (01:27→19:41)
[2020-06-08] MEDS: HYDROCORTISONE SOD SUCCINATE 100 MG/2 ML VIAL IV SCH ×3 (02:35→17:09)
[2020-06-08] MEDS: HEPARIN SODIUM, PORCINE 5000 UNITS/1 ML VIAL SQ SCH ×3 (05:38→21:12)
[2020-06-08 05:44] LABS: BASOPHILS % (AUTO) 0.2 % (0.0-2.0); HEMATOCRIT 35 % (33-45); HEMOGLOBIN 11.4 g/dL (11.5-14.8); LYMPHOCYTES # (AUTO) 0.8 /CMM (0.8-4.8); LYMPHOCYTES % (AUTO) 11.1 % (20.0-44.0); MEAN CORPUSCULAR HGB CONC 33 g/dl (31.0-36.0); MEAN CORPUSCULAR VOLUME 95 fL (82-100); MONOCYTES # (AUTO) 0.1 /CMM (0.1-1.30); MONOCYTES % (AUTO) 1.6 % (2.0-12.0); NEUTROPHILS # (AUTO) 6.2 /CMM (1.8-8.9); NEUTROPHILS % (AUTO) 87.1 % (43.0-81.0); PLATELET COUNT (AUTO) 226 /CMM (150-450); RED BLOOD CELL COUNT(AUTO) 3.65 MIL/uL (4.0-5.2); WHITE BLOOD COUNT (AUTO) 7.2 K/uL (4.3-11.0)
[2020-06-08 05:53] LABS: CALCIUM, SERUM 8.3 mg/dL (8.5-10.1); CREATININE 5.9 mg/dL (0.6-1.3); POTASSIUM 4.6 mmol/L (3.5-5.1)
--- NOTE | 2020-06-08 06:48 | NUR ---
N CLOSING NOTES NO CHANGE OF CONDITION DURING THE SHIFT. THE CLIENT REMAINS STABLE WITH NO S/S OF DISTRESS NOR PAIN, THE CLIENT DENIES PAIN AT THIS TIME. CLIENT CONTINUE ON VENT SUPPORT. ALL SAFETY MECHANISMS IN PLACE, COMFORT MEASURES PROVIDED. WILL ENDORSE THE INCOMING NURSE FOR CONTINUITY OF CARE.
[2020-06-08] MEDS ORDERED: VANCOMYCIN POST DIALYSIS 500MG IV PRN ×2 (07:30)
--- NOTE | 2020-06-08 07:30 | NUR ---
rn notes received patient asleep, easily waken by verbal stimuli. a/o x4, able to respond appropriately. able to make needs known.tolerating current vent settings, sating well at 98%. no sign of of shortness of breath noted. sinus nahed on the monitor with hr at 59bpm. no complaints of pain of any kind. iv on the left ij, triple lumen in place and intact. flushing well. iv on the RAc g [address] and intact.patient encourage to call for help and assistance. to verbalize feelings and concerns. call light placed within reach. will continue to monitor patient accordingly
[2020-06-08] MEDS: LEVOTHYROXINE SODIUM 175 MCG TABLET PO SCH (08:07)
[2020-06-08] MEDS: BLOOD SUGAR DIAGNOSTIC 1 EACH STRIP VI SCH ×4 (08:07→21:07)
[2020-06-08] MEDS: FAMOTIDINE (20 MG) 20 MG TABLET PO SCH (08:08)
[2020-06-08] MEDS: SEVELAMER CARBONATE 800 MG TABLET PO SCH ×3 (08:08→17:09)
[2020-06-08] MEDS: MUPIROCIN OINT 2% 22 GM TUBE NS SCH ×2 (08:08→21:00)
[2020-06-08] MEDS: FERROUS SULFATE (325 MG) 325 MG/TAB TABLET PO SCH ×2 (08:08→17:09)
[2020-06-08] MEDS: ESCITALOPRAM OXALATE (10 MG) 10 MG TABLET PO SCH (08:08)
[2020-06-08] MEDS: INSULIN REGULAR, HUMAN 100 UNIT/ML 3 ML VIAL SQ PRN ×2 (08:09→17:43)
--- NOTE | 2020-06-08 10:00 | NUR ---
rn notes patient transferred to room 120-1 via acls protocol. bedside report given to johnny taylor. hands off
--- NOTE | 2020-06-08 10:03 | NUR ---
[facility] RN NOTES PATIENT TRANSFERRED FROM ICU REPORT GIVEN FAUSTINA RN. PATIENT TELE SR-72, A/O X3/4, TRACHEA / VENT DEPENDENT WITH AEROSOL ABLE TO EAT, AND VERBALIZE SELF. PATIENT HAS NO ACUTE RESPIRATORY DISTRESS, OBESE, TOTAL CARE, DISTENDED ABDOMEN, AND EDEMA AND DISCOLORATION OF LOWER EXTREMITIES, DRY SKIN,MULTIPLE WOUNDS. IV ACCESS LEFT INTRAJUGULAR SITE INTACT, V/S TAKEN BP-146/73, T-98,4, R-19, O2-98, P-73. CALL LIGHT WITHIN TO REACH, ASSIST TURN AND REPOSTION Q 2 HR. WILL CONTINUED MONITORING.
--- NOTE | 2020-06-08 13:00 | NUR ---
rn notes bs-180 mg/dl refused coverage.
--- NOTE | 2020-06-08 13:06 | NUR ---
RN NOTES BS184 MG/DL, PATIENT STABLE, REFUSED PAIN, ASSIST TURN AND REPOSTION Q2 HR, V/S WNL. WILL CONTINUE MONITORING.
--- NOTE | 2020-06-08 13:31 | NUR ---
RN NOTES TOLERATED LUNCH 100%, DUE MEDICATION ADMINISTERED WITH APPLE SAUCE.
--- NOTE | 2020-06-08 18:30 | NUR ---
RN NOTES BS-249 MG/DL COVERAGE GIVEN, PATIENT TOLERATED DINNER 100%, DUE MEDICATION ADMINISTERED, V/S WNL. ASSIST TURN AND REPOSTION Q 2 HR, CALL LIGHT WITHIN TO REACH. ENDORSED ONCOMING NURSE FOLLOW PLAN OF CARE. PATIENT SCHEDULED HD TODAY .
--- NOTE | 2020-06-08 19:35 | NUR ---
PARKING ENFORCEMENT SPECIALIST OPEN NOTES PATIENT IS LAYING IN BED. A/O X3-4. [facility] TOLERATING WELL. NO COMPLAINTS OF PAIN AT THE MOMENT. BED IS IN LOWEST LOCKED POSITION WITH SIDE RAILS UP X3, SEMI FOWLERS. CALL LIGHT IS WITHIN REACH. WILL CONTINUE TO MONITOR.
--- NOTE | 2020-06-08 20:08 | NUR ---
RT medication not in room/cassette. notified yessy campos rn. rn will request from pharmacy
[2020-06-08] MEDS: *INSULIN REGULAR(HUMULIN R)HUM 100 UNIT/ML VIAL SQ PRN (21:12)
[2020-06-09] VITALS: BP 135/55
[2020-06-09] MEDS: ALBUTEROL SULFATE INH 18 GM HFA.AER.AD IH SCH ×3 (01:30→13:30)
[2020-06-09] MEDS: IPRATROPIUM NEB FS 0.5 MG/2.5 ML AMPUL.NEB NEB SCH ×3 (02:24→13:54)
--- NOTE | 2020-06-09 02:24 | NUR ---
RT wrong medication provided by pharmacy. unable to give via trach. notified johnny guerrero. rn will notify pharmacy in am and get correct medication
[2020-06-09] MEDS: HYDROCORTISONE SOD SUCCINATE 100 MG/2 ML VIAL IV SCH ×2 (02:31→10:19)
[2020-06-09 04:00] VITALS: BP 134/60
[2020-06-09] MEDS: HEPARIN SODIUM, PORCINE 5000 UNITS/1 ML VIAL SQ SCH ×2 (04:14→13:12)
[2020-06-09] MEDS: BLOOD SUGAR DIAGNOSTIC 1 EACH STRIP VI SCH ×3 (06:51→17:00)
[2020-06-09] MEDS: INSULIN REGULAR, HUMAN 100 UNIT/ML 3 ML VIAL SQ PRN ×3 (06:53→17:20)
--- NOTE | 2020-06-09 07:06 | NUR ---
PARTNERSHIP MANAGER CLOSE NOTES PATIENT IS LAYING IN BED. A/O X3-4. ON MECH VENT, TOLERATING WELL, SATURATING AT 99-100%. IV IN RIGHT AC #20G IS PATENT AND INTACT. PT DENIES ANY PAIN AT THE MOMENT. ALL ACCUCHECKS DONE. BED IS IN LOWEST LOCKED POSITION WITH SIDE RAILS UP X3, SEMI FOWLERS. CALL LIGHT IS WITHIN REACH. WILL ENDORSE TO AM NURSE.
--- NOTE | 2020-06-09 07:18 | NUR ---
FLAKE DRIER NOTES SPOKE TO PHARMACY REGARDING PT'S ALBUTEROL. PHARMACY STATED THEY WILL GIVE THE CORRECT ALBUTEROL AND PLACE IN PT'S CASSETTE.
[2020-06-09 07:36] LABS: CALCIUM, SERUM 8.3 mg/dL (8.5-10.1); CREATININE 5.3 mg/dL (0.6-1.3)
[2020-06-09 07:40] LABS: BASOPHILS % (AUTO) 0.1 % (0.0-2.0); HEMATOCRIT 34 % (33-45); HEMOGLOBIN 10.7 g/dL (11.5-14.8); LYMPHOCYTES # (AUTO) 0.6 /CMM (0.8-4.8); LYMPHOCYTES % (AUTO) 3.7 % (20.0-44.0); MEAN CORPUSCULAR HGB CONC 32 g/dl (31.0-36.0); MEAN CORPUSCULAR VOLUME 97 fL (82-100); MONOCYTES # (AUTO) 0.3 /CMM (0.1-1.30); NEUTROPHILS # (AUTO) 15.1 /CMM (1.8-8.9); NEUTROPHILS % (AUTO) 94.2 % (43.0-81.0); PLATELET COUNT (AUTO) 237 /CMM (150-450); RED BLOOD CELL COUNT(AUTO) 3.52 MIL/uL (4.0-5.2); WHITE BLOOD COUNT (AUTO) 16.1 K/uL (4.3-11.0)
[2020-06-09 08:00] VITALS: BP 129/72
--- NOTE | 2020-06-09 08:01 | NUR ---
Hold insulin since patient haven't eat since yesterday on cont Bipap therapy Addendum: 06/09/20 at 0805 by Winnie Godfrey RN disregard this note
--- NOTE | 2020-06-09 08:17 | NUR ---
RN OPENING NOTES RECEIVED REPORT FROM RUSSELL, PT IS ALERT AND RESTING IN BED. FULL CODE NOTED. ON TELE MONITOR. NSR AT THIS TIME. HR OF 71. NO SIGNS OF SOB OR RESP DISTRESS. PT IS ON TRACH/MECHANICAL VENTILATION TOLERATING SETTINGS WELL. PT CAN TAKE MEDS AND EAT WITHOUT ASSISTANCE. PATIENT HAS MANY SCARS ALL OVER BODY WITH WOUNDS. WILL CARRY OUT WOUND TREATMENT ORDERED. LEFT IJ FLUSHED PATENT. RIGHT IV SITE LEAKING. D/C LINE. REINFORCED WITH TAPE AND GAUZE FOR 1 MINUTE. BED ALARM IS ON AND BED LOCKED IN LOWEST POSITION. CALL LIGHT WITHIN REACH.
--- NOTE | 2020-06-09 08:38 | NUR ---
LAB CALLED OF CO2 OF 50 CRITICAL. RT CHANGED FROM MASK TO HIGH FLOW 60L, PT SATURATING 87-89. DOCTOR AWARE. AWAITING NEW RESULT OF ABG.
[2020-06-09] MEDS: LEVOTHYROXINE SODIUM 175 MCG TABLET PO SCH (10:18)
[2020-06-09] MEDS: SEVELAMER CARBONATE 800 MG TABLET PO SCH ×3 (10:19→17:25)
[2020-06-09] MEDS: ESCITALOPRAM OXALATE (10 MG) 10 MG TABLET PO SCH ×2 (10:19→10:34)
[2020-06-09] MEDS: MUPIROCIN OINT 2% 22 GM TUBE NS SCH (10:19)
[2020-06-09] MEDS: FAMOTIDINE (20 MG) 20 MG TABLET PO SCH (10:19)
[2020-06-09] MEDS: FERROUS SULFATE (325 MG) 325 MG/TAB TABLET PO SCH ×2 (10:19→17:00)
--- NOTE | 2020-06-09 11:30 | NUR ---
HELD LEXAPRO AT PT REQUEST. EXPLAINED RISKS AND BENEFITS PT STILL DECLINED. WILL CONTINUE TO MONITOR
--- NOTE | 2020-06-09 11:45 | NUR ---
Received patient form Amy RN, patient is tolerating vent settings well no SOB, resp distress noted, denies pain or discomfort, will cont to monitor
--- NOTE | 2020-06-09 11:48 | NUR ---
GAVE REPORT TO RUSSELL FOR CONTINUATION OF CARE.
[2020-06-09 12:00] VITALS: BP 144/82
[2020-06-09] MEDS: PROSOURCE / PROSTAT (PYXIS) 30 ML UDC GT SCH ×2 (13:14→17:46)
[2020-06-09 16:00] VITALS: BP 148/75
--- NOTE | 2020-06-09 16:20 | NUR ---
Patient wants to receive flu vaccine will follow up and administer per protocol
--- NOTE | 2020-06-09 16:33 | NUR ---
Patient will be discharged today, Gave report to Lauren PANTOJA ([phone]_ [facility]
[2020-06-09] MEDS ORDERED: INFLUENZA VACCINE 2020-21 0.5 ML DISP.SYRIN IM ONE (17:00)
--- NOTE | 2020-06-09 17:59 | NUR ---
Stable to dc per MD. Spoke with Amira @ [facility] [phone], aware and accepting patient back. D/c summary and clinicals faxed per [facility] request. Spoke with sister Nneka [phone], aware and agreed with dc. Arranged transportation thru [facility] [phone] but can't transport for same day services. Spoke with Man DWYER @ [facility] [phone] obtained auth# [id number]*PTR for [facility] [phone] eta 7pm. Addendum: 06/09/20 at 1759 by PRISCILA CORTES RN Amended: Links added.
--- NOTE | 2020-06-09 19:35 | NUR ---
RN CLOSING NOTE Remains in bed, clean, repositioned, bed locked, call light in trach, tolerating vent settings well, denies pain or discomfort, comfort needs attended, medication given, bed is locked, call light in reach, will endorse to PM shift RN for PANTERA
--- NOTE | 2020-06-09 20:00 | NUR ---
STRAW HAT MACHINE OPERATOR OPENING NOTE RECEIVED PT IN BED. AWAKE A/0 X3. BREATHING EVEN AND UNLABORED ON MECHANICAL VENT. VENT SETTINGS TOLERATING WELL. DENIES ANY PAIN OR DISCOMFORT. LEFT IJ PATENT AND INTACT. HD SITE PATENT AND INTACT. SRX2 UP. CALL LIGHT WITHIN REACH. BED IN LOWEST POSITION. ALL NEEDS RENDERED. WILL CONTINUE TO MONITOR.
--- NOTE | 2020-06-09 20:45 | NUR ---
TELE CLOSING NOTE PT LEFT BUILDING IN STABLE CONDITION. BREATHING EVEN AND UNLABORED ON MECHANICAL VENT. VENT SETTINGS TOLERATING WELL.DENIES ANY PAIN OR DISCOMFORT. PT ACCOMPANIED BY 1RN/RT AND 3 iv therapy nurse VIA GURNEY. ALL BELONGINGS SIGNED BY EMT. [facility]
== END 2020-06-09 21:58 | DRG 422 ==
LOC: ER 13:45 → ICU 16:50 → TELE1 06-08 09:51
PROVIDERS: ADMIT Internal Medicine; ATTEND Internal Medicine
PROC: 5A1955Z Respiratory Ventilation, Greater than 96 Consecutive Hours (ICD-10-PCS; principal; 2020-06-05)
PROC: 05HN33Z Insertion of Infusion Device into Left Internal Jugular Vein, Percutaneous Approach (ICD-10-PCS; 2020-06-05)
PROC: B544ZZA Ultrasonography of Left Jugular Veins, Guidance (ICD-10-PCS; 2020-06-05)
PROC: 5A1D70Z Performance of Urinary Filtration, Intermittent, Less than 6 Hours Per Day (ICD-10-PCS; 2020-06-05)
DX: E86.1 Hypovolemia (principal); I12.0 Hypertensive chronic kidney disease with stage 5 chronic kidney disease or end stage renal disease; I95.9 Hypotension, unspecified; N18.6 End stage renal disease; E43 Unspecified severe protein-calorie malnutrition; Z98.890 Other specified postprocedural states; Z79.51 Long term (current) use of inhaled steroids; Z79.4 Long term (current) use of insulin; Z79.899 Other long term (current) drug therapy; Z99.2 Dependence on renal dialysis; E11.22 Type 2 diabetes mellitus with diabetic chronic kidney disease; Z68.44 Body mass index [BMI] 60.0-69.9, adult; E66.2 Morbid (severe) obesity with alveolar hypoventilation; D63.8 Anemia in other chronic diseases classified elsewhere; E87.1 Hypo-osmolality and hyponatremia; F29 Unspecified psychosis not due to a substance or known physiological condition; F20.9 Schizophrenia, unspecified; E03.9 Hypothyroidism, unspecified; E87.2 Acidosis; R78.81 Bacteremia; B96.89 Other specified bacterial agents as the cause of diseases classified elsewhere
CPT/HCPCS: 31720; 36415; 71045-TC; 80048-TC; 80076-TC; 80202-TC; 82533; 82728-TC; 82962-TC; 83540-TC; 83605-TC; 83735-TC; 84100-TC; 84439-TC; 84443-TC; 84484-TC; 85025-TC; 85730-TC; 87040-TC; 87081-TC; 90935-TC; 94002-TC; 94003-TC; 94760-TC; 94799-TC; 99082-TC; A4349; A4623; A6253; A6407; A7526; C1751; G0378; J1644; J1720; J1815; J3370; J7030; J7050; J7060; Q0163; Q2036; U0003-CS

== ENCOUNTER 2020-07-01 13:25 | Inpatient (IN) | payer MEDICAID ==
[2020-07-01] VITALS (14 sets, daily range): BP systolic 65–125; BP diastolic 31–70
[~2020-07-01] VITALS: Ht 162.6 cm; Wt 163.3 kg
[2020-07-01] MEDS ORDERED: IV NS 0.9% 500 ML BAG IV ONE (13:30)
--- NOTE | 2020-07-01 13:40 | NUR ---
miesha, from dialysis center, came in due to hypotension 60/49,before HD. Patient a/ox4, breathing even and unlabored, on a mechanical vent and tolerating current settings, came in with left ij central line. Dressing intact. Needs attended. Kept comfortable. BP on the monitor shows 102/81.
[2020-07-01] MEDS ORDERED: LEVO100T PO (13:52)
[2020-07-01] MEDS ORDERED: INSU100V30 SQ (13:52)
--- NOTE | 2020-07-01 13:55 | NUR ---
BLOOD DRAWN FROM CENTRAL LINE AND SENT TO LAB.
--- NOTE | 2020-07-01 14:00 | NUR ---
RT RECD PT TRACHED SECURED SHILEY 6 UNCUFFED FOR LOW BP FROM DIALYSIS WITH FOLLOWING SETTING OF AC 18 500 40% +5 VENT PLUGGED IN RED OUTLET BAG AND MASK AT HOB SX SMALL OBANDO SECRETION NO RESP DISTRESS WILL CONT TO MONITOR Addendum: 07/01/20 at 1402 by PARISH JOSE RT Amended: Links added.
[2020-07-01 14:21] LABS: BASOPHILS % (AUTO) 1.1 % (0.0-2.0); EOSINOPHILS % (AUTO) 3.8 % (0.0-6.0); HEMATOCRIT 33 % (33-45); HEMOGLOBIN 10.2 g/dL (11.5-14.8); LYMPHOCYTES # (AUTO) 1.1 /CMM (0.8-4.8); LYMPHOCYTES % (AUTO) 25.5 % (20.0-44.0); MEAN CORPUSCULAR HGB CONC 31 g/dl (31.0-36.0); MEAN CORPUSCULAR VOLUME 100 fL (82-100); MONOCYTES # (AUTO) 0.3 /CMM (0.1-1.30); MONOCYTES % (AUTO) 6.6 % (2.0-12.0); NEUTROPHILS # (AUTO) 2.7 /CMM (1.8-8.9); PLATELET COUNT (AUTO) 154 /CMM (150-450); RED BLOOD CELL COUNT(AUTO) 3.28 MIL/uL (4.0-5.2); WHITE BLOOD COUNT (AUTO) 4.2 K/uL (4.3-11.0)
[2020-07-01 14:39] LABS: CALCIUM, SERUM 8.6 mg/dL (8.5-10.1); CARBON DIOXIDE 23 mmol/L (21-32); CHLORIDE 100 mmol/L (98-107); CREATININE 5.4 mg/dL (0.6-1.3); GLUCOSE 197 mg/dL (74-106); POTASSIUM 4.9 mmol/L (3.5-5.1); SODIUM SERUM 134 mmol/L (136-145); UREA NITROGEN, BLOOD 36 mg/dL (7-18)
[2020-07-01 14:44] LABS: ALANINE AMINOTRANSFERASE 18 U/L (12-78); ALBUMIN 2.3 g/dL (3.4-5.0); ALKALINE PHOSPHATASE 194 U/L (46-116); ASPARTATE AMINOTRANSFERASE 15 U/L (15-37); BILIRUBIN,DIRECT 0.2 mg/dL (0.0-0.2); BILIRUBIN,TOTAL 0.4 mg/dL (0.2-1.0); TOTAL PROTEIN, SERUM 7.2 g/dL (6.4-8.2)
--- NOTE | 2020-07-01 15:25 | NUR ---
CALLED EPIC PANEL FOR ADMISSION
[2020-07-01] MEDS ORDERED: CEFTRIAXONE 1GM BAG (ER ONLY) 50 ML IV ONE (15:57)
[2020-07-01] MEDS ORDERED: HYDROCODONE/APAP 5/325MG TABLET PO PRN (16:00)
[2020-07-01] MEDS ORDERED: Z GUARD REMEDY 2 OZ OINT TP PRN (16:00)
[2020-07-01] MEDS ORDERED: NA PHOS,M-B/NA PHOS,DI-BA 1 EA ENEMA RC PRN (16:00)
[2020-07-01] MEDS ORDERED: ONDANSETRON HCL/PF 4 MG/2 ML VIAL IVP PRN (16:00)
[2020-07-01] MEDS ORDERED: LORAZEPAM 1 MG TABLET PO PRN (16:00)
[2020-07-01] MEDS ORDERED: ACETAMINOPHEN 325 MG TABLET PO PRN (16:00)
[2020-07-01] MEDS ORDERED: CEFTRIAXONE 1 G in IV D5W 50 ML IV ONE (16:00)
[2020-07-01] MEDS ORDERED: HYDROCODONE/APAP 10/325MG TABLET PO PRN (16:00)
[2020-07-01] MEDS ORDERED: BISACODYL SUPP (10 MG) 10 MG/SUPP.RECT SUPP.RECT RC PRN (16:00)
--- NOTE | 2020-07-01 16:17 | NUR ---
tele overflow room 259
--- NOTE | 2020-07-01 16:21 | NUR ---
ATTEMPTED TO GIVE REPORT, ICU NURSE IS NOT READY FOR REPORT.
--- NOTE | 2020-07-01 16:55 | NUR ---
tele *icu room* Patient arrived to unit from ER for reported BP 60/49 @HD center. In ER 500NS bolus given. Upon arrival BP stable (see vitasigns). w/ trach+mech vent, SPO2 95% no SOB or distress. A/Ox3. Verbal. SR HR 70s. Per patient, says she eats. ST eval. Per patient, does not make urine. HD RN at bedside, consent placed in chart. L IJ TLC intact. R CW HD. Seen by Dr. Aguilera Son aware of admission Wound pictures taken initial assessment+physical, cssr completed ..endorsed to NOC MAX sims for completion of admission
[2020-07-01] MEDS: FERROUS SULFATE (325 MG) 325 MG/TAB TABLET PO SCH (17:00)
--- NOTE | 2020-07-01 17:03 | NUR ---
PATIENT AWAKE, ALERT AND ORIENTED X3, BREATHING EVEN AND UNLABORED, NO SOB NOTED, TRANSFERRED TO ROOM 259 VIA ACLS PROTOCOL. RT PRESENT. NO DISTRESS NOTED.
[2020-07-01] MEDS: SEVELAMER CARBONATE 800 MG TABLET PO SCH (19:05)
[2020-07-01] MEDS ORDERED: ALBUMIN 25% 25 GM in PREMIX 1 EA IV PRN (19:30)
--- NOTE | 2020-07-01 20:00 | NUR ---
LOADING SHOVEL OILER NOTE PT IN BED AWAKE. A/O X 3, NO SOB NO DISTRESS OR DISCOMFORT NOTED. HD JUST FINISHED. 0 ML OUTPUT WITH HD. BP 96/45. PT IS RUNNING LOW B/P. ALBUMIN GIVEN WITH HD. TRACH SHIELY #6. PT DENIES PAIN. TELE SB 59. PT REMAIN NPO. LIJ TLC INTACT AND PATENT. ALSO RCW HD CATH INTACT. KYLEE BRIM PRESSER INFORMED PT HAS HX OF DM. NEW ORDER RECEIVED AND CARRIED OUT. KEPT HER DRY AND CLEAN. SIDE RAILS UP X 3 AND CALL LIGHT WITHIN REACH. CONTINUE TO MONITOR HER. Addendum: 07/02/20 at 0251 by MARIA G MANRIQUEZ RN PT ON [facility] VENT/TRACH TOLERATING SETTINGS WELL.
--- NOTE | 2020-07-01 20:28 | NUR ---
RT pt received on mechanical vent. trached karishma 6. vent plugged in to red outlet. ambu bag at bedside. alarms on and audible. no sob/no resp distress at this time. will cont to monitor.
[2020-07-01] MEDS ORDERED: DEXTROSE 50%-WATER 50 ML DISP.SYRIN IV PRN (20:30)
[2020-07-01] MEDS: HEPARIN SODIUM, PORCINE 5000 UNITS/1 ML VIAL SQ SCH (21:09)
--- NOTE | 2020-07-01 21:34 | NUR ---
CS ASSOCIATE NOTE PT ENDORSE TO MARRYTESS FOR CONTINUE TO CARE. BP 96/45 HR 62
--- NOTE | 2020-07-01 21:35 | NUR ---
Received report from MAX Solo.Patient awake resting follows simple commands.SB 50's. SBP 90's.With trach to mechanical vent on AC mode.Patient tolerating vent settings well. No respiratory distress noted.NPO status.Anuric with HD cath to R upper chest.Site intact. LIJ TLC site intact.Denies pain or any discomfort.Will turn and reposition Q 2 hrs. Continue monitoring.
--- NOTE | 2020-07-01 21:45 | NUR ---
AUTO TECH NOTE RECHECKED WITH [facility] ABOUT FLU AND PNA SHOT BUT UNABLE TO REACH THEM. SON ALSO CALLED BUT HE DOESN'T KNOW. ENDORSE TO ANNA RN TO FOLLOW UP WITH [facility] IN THE MORNING.
[2020-07-01] MEDS: BLOOD SUGAR DIAGNOSTIC 1 EACH STRIP IN SCH (23:54)
[2020-07-02] VITALS (78 sets, daily range): BP systolic 62–211; BP diastolic 17–169
--- NOTE | 2020-07-02 | NUR ---
Patient resting vss.FSBS 138 no coverage given patient npo.Turned and repositioned tto comfort.
[2020-07-02] MEDS ORDERED: NOREPINEPHRINE 4 MG/4 ML AMPUL IV ONE (04:26)
[2020-07-02] MEDS: NOREPINEPHRINE 32 MG in IV NS 0.9% 242 ML IV PRN ×2 (04:33→20:14)
--- NOTE | 2020-07-02 04:33 | NUR ---
Patient hemodynamically unstable Levophed gtt started at 0.1 mcg per protocol. Patient denies pain.
[2020-07-02 05:00] LABS: CALCIUM, SERUM 8.3 mg/dL (8.5-10.1); CREATININE 4.9 mg/dL (0.6-1.3); MAGNESIUM 1.9 mg/dL (1.8-2.4); PHOSPHORUS 3.1 mg/dL (2.5-4.9); POTASSIUM 4.3 mmol/L (3.5-5.1)
[2020-07-02 05:02] LABS: BASOPHILS % (AUTO) 0.4 % (0.0-2.0); EOSINOPHILS % (AUTO) 3.2 % (0.0-6.0); HEMATOCRIT 31 % (33-45); HEMOGLOBIN 9.7 g/dL (11.5-14.8); LYMPHOCYTES % (AUTO) 21.8 % (20.0-44.0); MEAN CORPUSCULAR HGB CONC 32 g/dl (31.0-36.0); MEAN CORPUSCULAR VOLUME 98 fL (82-100); MONOCYTES # (AUTO) 0.3 /CMM (0.1-1.30); MONOCYTES % (AUTO) 5.9 % (2.0-12.0); NEUTROPHILS % (AUTO) 68.7 % (43.0-81.0); PLATELET COUNT (AUTO) 143 /CMM (150-450); RED BLOOD CELL COUNT(AUTO) 3.11 MIL/uL (4.0-5.2); WHITE BLOOD COUNT (AUTO) 4.4 K/uL (4.3-11.0)
[2020-07-02] MEDS: HEPARIN SODIUM, PORCINE 5000 UNITS/1 ML VIAL SQ SCH ×3 (05:32→20:52)
--- NOTE | 2020-07-02 05:32 | NUR ---
Patient resting in no distress.BP elevated 184/66 levophed gtt titrated off.
[2020-07-02] MEDS: BLOOD SUGAR DIAGNOSTIC 1 EACH STRIP IN SCH ×3 (05:41→18:27)
--- NOTE | 2020-07-02 06:00 | NUR ---
Patient resting in no acute distress.BP remains unstable.Levophed gtt restarted per protocol. am care done.
--- NOTE | 2020-07-02 07:10 | NUR ---
Report given to MAX Ramirez to follow up patient record at [facility] if she received Flu and Pneumonia vaccine. Addendum: 07/03/20 at 0551 by PRISCILA AJ RN Patient refused SCD despite explanation.
--- NOTE | 2020-07-02 07:27 | NUR ---
RN NOTES STARTED LEVO AT 0.1 AT 7:27 AM DUE TO BLOOD PRESSURE IS 81/27
[2020-07-02] MEDS: LEVOTHYROXINE SODIUM 100 MCG TABLET PO SCH (07:30)
--- NOTE | 2020-07-02 07:40 | NUR ---
RN NOTES BLOOD PRESSURE NOW 93/35
--- NOTE | 2020-07-02 07:43 | NUR ---
RN NOTES STOPPED LEVO AGAIN BECAUSE THE BLOOD PRESSURE IS 176/75
--- NOTE | 2020-07-02 07:45 | NUR ---
RN NOTES' RECEIVED PT IN BED. ALERT AND ORIENTED X3. ON VENT SETTING ORDERED. LI TLC AND RCW HD IS INTACT,PATIENT AND NO SIGN OF INFILTRATION , REDNESS, OR INFECTION NOTED. NO SOB OR RESPIRATORY DISTRESS NOTED AT THIS TIME. PT IS NPO . WAITING FOR SWALLOW EVAL.PT REFUSED SCD NIGHT NURSE CLAIMED. SAFETY MEASUREMENTS ARE IMPLEMENTED PER HOSPITAL PROTOCOL. BED IS IN THE LOWEST POSITION, ON BRAKE,SIDE RAILS ARE X2.CALL LIGHT WITHIN THE REACH. WILL CONTINUE TO MONITOR
[2020-07-02] MEDS: SEVELAMER CARBONATE 800 MG TABLET PO SCH ×3 (08:00→18:29)
--- NOTE | 2020-07-02 08:05 | NUR ---
RN NOTES PT B/P IS 82/30 STARTED LEVO
--- NOTE | 2020-07-02 08:15 | NUR ---
RN NOTES B/P IS 175/48 STOPPED LEVO
--- NOTE | 2020-07-02 08:28 | NUR ---
WOUND CARE CONSULT: REVIEWED CHART, NURSING DOCUMENTATION AND PHOTOS WHICH INDICATE SCARRING TO ABDOMEN, SACRUM, BUTTOCKS AND POSTERIOR THIGHS WITH SOME OPEN AREAS, PRESENT ON ADMISSION. RECOMMEND SURGICAL CONSULT. DR RAMIREZ NOTIFIED OF CONSULT REQUEST. [facility] AIR BED IS ON ORDER. RECOMMENDATIONS MADE FOR SKIN PROTECTION. DISCUSSED WITH NURSING STAFF. MD IN AGREEMENT WITH PLAN OF CARE.
[2020-07-02] MEDS: FERROUS SULFATE (325 MG) 325 MG/TAB TABLET PO SCH ×2 (08:41→18:31)
[2020-07-02] MEDS: ESCITALOPRAM OXALATE (10 MG) 10 MG TABLET PO SCH ×2 (08:41→10:31)
[2020-07-02] MEDS: POLYETHYLENE GLYCOL 3350 17 GM POWD.PACK PO SCH (08:42)
[2020-07-02] MEDS: FAMOTIDINE (20 MG) 20 MG TABLET PO SCH (08:42)
[2020-07-02] MEDS ORDERED: COLLAGENASE 30 GM TUBE TP SCH (09:00)
[2020-07-02 11:38] LABS: THYROID STIMULATING HORMONE 43.937 uIU/mL (0.358-3.74)
[2020-07-02] MEDS: HYDROCORTISONE SOD SUCCINATE 100 MG/2 ML VIAL IV SCH ×2 (12:17→18:31)
[2020-07-02] MEDS: INSULIN REGULAR, HUMAN 100 UNIT/ML 3 ML VIAL SQ PRN ×2 (12:34→20:05)
--- NOTE | 2020-07-02 15:23 | NUR ---
RN NOTES RECEIVED CALLED FROM [facility] FOR BLOOD CULTURE Preliminary REPORT THAT GRAM POSITIVE COCCI IN CLUSTERS SEEN ON GRAM STAIN
--- NOTE | 2020-07-02 18:16 | NUR ---
RN NOTES STARTED LEVO BP TOO LOW
--- NOTE | 2020-07-02 19:00 | NUR ---
RN NOTES STOPPED LEVO BP IS 91
[2020-07-02] MEDS ORDERED: VANCOMYCIN 1.5 GM in IV D5W 500ml IV ONE (19:30)
--- NOTE | 2020-07-02 19:30 | NUR ---
RN NOTE RECEIVED PATIENT IN BED, AO X3-4. PATIENT IN NO S/SX OF ACUTE DISTRESS AT THIS TIME. PATIENT'S BREATHING IS EVEN AND UNLABORED. PATIENT IS ON TRACH SHILEY #6 WITH SETTINGS PRESCRIBED, TOLERATING WELL, SATURATING AT 99%. PATIENT ON TELE MONITOR READING SR, HR IS 69. NOTED LIJ TLC, PATENT AND FLUSHING WITH NOREPINEPHRINE DRIP TITRATED PER PROTOCOL, AND RCW HD CATH, NO S/S OF INFECTION. SAFETY MEASURES IMPLEMENTED PER PROTOCOL. PATIENT BED ALARM IS ON. HEAD OF BED ELEVATED. BED IS LOCKED, IN LOWEST POSITION AND SIDE RAILS UP. CALL LIGHT WITHIN REACH OF THE PATIENT. WILL CONTINUE TO MONITOR AND REASSESS FOR ANY CHANGES.
--- NOTE | 2020-07-02 19:40 | NUR ---
RN CLOSING NOTES' PT IS RESTING IN BED. ALERT AND ORIENTED X3. ON VENT SETTING ORDERED. LI TLC AND RCW HD IS INTACT,PATIENT AND NO SIGN OF INFILTRATION , REDNESS, OR INFECTION NOTED. NO SOB OR RESPIRATORY DISTRESS NOTED AT THIS TIME. . ALL NEEDS MET PT CLEAN AND DRY.SAFETY MEASUREMENTS ARE IMPLEMENTED PER HOSPITAL PROTOCOL. BED IS IN THE LOWEST POSITION, ON BRAKE,SIDE RAILS ARE X2.CALL LIGHT WITHIN THE REACH. WILL ENDORSE TO GASTROENTEROLOGY NURSE PRACTITIONER
--- NOTE | 2020-07-02 20:35 | NUR ---
RN NOTE TELEPHONE CALL FROM KATHLEEN OF LAB, STATED BLOOD CULTURE RESULTED- GRAM POSITIVE COCCI CLUSTERS WERE SEEN. SUPERVISOR METER SHOP MADE AWARE. PATIENT HAS ONGOING ANTIBIOTICS.
[2020-07-03] VITALS (62 sets, daily range): BP systolic 86–192; BP diastolic 36–143
--- NOTE | 2020-07-03 00:30 | NUR ---
RN NOTE FINGERSTICK BLOOD GLUCOSE RESULTED, 409, REPEATED AND OBTAINED 410. NURSERY TECHNICIAN MADE AWARE. MD NOTIFIED AND ORDERED TO CHANGE SLIDING SCALE TO MODERATE.
[2020-07-03] MEDS ORDERED: DEXTROSE 50%-WATER 50 ML DISP.SYRIN IV PRN (01:00)
[2020-07-03] MEDS: HYDROCORTISONE SOD SUCCINATE 100 MG/2 ML VIAL IV SCH ×3 (01:04→17:39)
[2020-07-03] MEDS: *INSULIN REGULAR(HUMULIN R)HUM 100 UNIT/ML VIAL SQ PRN ×3 (01:06→22:25)
[2020-07-03 04:52] LABS: BASOPHILS % (AUTO) 0.3 % (0.0-2.0); HEMATOCRIT 37 % (33-45); HEMOGLOBIN 11.5 g/dL (11.5-14.8); LYMPHOCYTES # (AUTO) 0.6 /CMM (0.8-4.8); LYMPHOCYTES % (AUTO) 11.3 % (20.0-44.0); MEAN CORPUSCULAR HGB CONC 31 g/dl (31.0-36.0); MEAN CORPUSCULAR VOLUME 100 fL (82-100); MONOCYTES # (AUTO) 0.1 /CMM (0.1-1.30); MONOCYTES % (AUTO) 2.1 % (2.0-12.0); NEUTROPHILS # (AUTO) 4.2 /CMM (1.8-8.9); NEUTROPHILS % (AUTO) 86.3 % (43.0-81.0); PLATELET COUNT (AUTO) 177 /CMM (150-450); WHITE BLOOD COUNT (AUTO) 4.9 K/uL (4.3-11.0)
--- NOTE | 2020-07-03 05:09 | NUR ---
RT NOTE Pt rec'd trached on [facility] vent on AC mode. Pt shows no signs of resp distress or sob. Pt awake and alert. Trach is patent and secured. Pt sx'd for thick mod amt of pale yellow secretions. Alarms are set and audible. Vent plugged into red outlet. Ambu bag and emergency spare trach bedside. Will continue to monitor closely. Addendum: 07/03/20 at 0510 by RIVKA BRUNO RT Amended: Links added.
[2020-07-03] MEDS: HEPARIN SODIUM, PORCINE 5000 UNITS/1 ML VIAL SQ SCH ×3 (05:13→21:39)
[2020-07-03 05:17] LABS: CALCIUM, SERUM 8.3 mg/dL (8.5-10.1); CREATININE 5.9 mg/dL (0.6-1.3); MAGNESIUM 2.2 mg/dL (1.8-2.4); PHOSPHORUS 3.8 mg/dL (2.5-4.9); POTASSIUM 5.2 mmol/L (3.5-5.1)
[2020-07-03] MEDS: BLOOD SUGAR DIAGNOSTIC 1 EACH STRIP VI SCH ×4 (07:33→22:22)
[2020-07-03] MEDS: LEVOTHYROXINE SODIUM 100 MCG TABLET PO SCH (07:33)
--- NOTE | 2020-07-03 07:45 | NUR ---
RN NOTE PATIENT IS RESTING IN ROOM. NO SIGNS OF RESPIRATORY DISTRESS. NOT ON LEVO DRIP DUE TO BP IS HIGH AND WILL TITRATE PER PROTOCOL.PT IS ON MECHANICAL VENT PER ORDER. SAFETY MEASUREMENTS ARE IMPLEMENTED PER HOSPITAL PROTOCOL BED IS IN LOWEST POSITION, LOCKED, SIDE RAILS UP X2 AND CALL LIGHT WITHIN REACH.WILL CONTINUE FOR CONTINUATION OF CARE.
--- NOTE | 2020-07-03 07:48 | NUR ---
RN NOTE PATIENT REMAINS IN ROOM. NO SIGNS OF RESPIRATORY DISTRESS. STILL ON NOREPINEPHRINE DRIP, TO TITRATE PER PROTOCOL. BED IN LOWEST POSITION, LOCKED, SIDE RAILS UP, CALL LIGHT WITHIN REACH. ALL NEEDS AND ORDERS ADDRESSED DURING THE SHIFT. ALL DUE MEDS GIVEN ORDERED, PATIENT TOLERATED WELL. PATIENT KEPT CLEAN AND COMFORTABLE WITHIN THE SHIFT. ENDORSED TO LYRIC SANTANA FOR CONTINUATION OF CARE OF CARE.
[2020-07-03] MEDS: POLYETHYLENE GLYCOL 3350 17 GM POWD.PACK PO SCH (08:30)
[2020-07-03] MEDS: FERROUS SULFATE (325 MG) 325 MG/TAB TABLET PO SCH ×2 (08:31→17:39)
[2020-07-03] MEDS: SEVELAMER CARBONATE 800 MG TABLET PO SCH ×3 (08:31→17:35)
[2020-07-03] MEDS: FAMOTIDINE (20 MG) 20 MG TABLET PO SCH (08:31)
[2020-07-03] MEDS: INSULIN REGULAR, HUMAN 100 UNIT/ML 3 ML VIAL SQ PRN ×3 (11:21→22:09)
--- NOTE | 2020-07-03 16:10 | NUR ---
RN NOTES TRANSFERRED PT WITH RT TO [facility] TO 119 ROOM AND GAVE REPORT TO RUSSELL.TRANSFERRED PT WITH ACLS PROTOCOL. PT IS STABLE .
--- NOTE | 2020-07-03 16:20 | NUR ---
MARYS[facility]/crop research scientist Notes Pt transferred from ICU at 1620 to room 119-1. Pt A/Ox4, breathing even and unlabored on trachea and vent. Vent settings as ordered, RT at bedside. vital sign stable. Pt set up on telemonitor in place and patent. Noted sacral, buttocks and thigh wounds dressings clean and intact. Pt denies pain. Pt has a Left intrajugular TLC and a Right Upper Chest Wall permacath intact. Safety precautions in place: side rails up x2, bed in lowest position, pt call hernandez and belongings within reach, with low air loss mattress in place. All needs rendered at this time. Will continue to monitor.
--- NOTE | 2020-07-03 18:41 | NUR ---
MARYSOL/group manager CLOSING Notes Pt resting in bed undergoing dialysis at this time. Dialysis nurse at bedside. Pt A/Ox4, breathing even and unlabored on trachea and vent. Vent settings rendered as ordered. vital sign stable. Telemonitor in place and patent reading Afib with HR-68. Pt denies pain. No signs and symptoms of pain. Left intrajugular TLC and a Right Upper Chest Wall permacath intact. Safety precautions in place: side rails up x2, bed in lowest position, pt call hernandez within reach, with low air loss mattress in place. All needs rendered at this time. Will endorse plan of care to oncoming shift.
[2020-07-03] MEDS ORDERED: VANCOMYCIN 500 MG in IV D5W 100 ML IV PRN (19:00)
[2020-07-04] VITALS: BP 172/87
[2020-07-04] MEDS: HYDROCORTISONE SOD SUCCINATE 100 MG/2 ML VIAL IV SCH ×2 (03:30→09:53)
[2020-07-04 04:00] VITALS: BP 138/83
[2020-07-04] MEDS: HEPARIN SODIUM, PORCINE 5000 UNITS/1 ML VIAL SQ SCH ×2 (05:24→12:50)
--- NOTE | 2020-07-04 06:40 | NUR ---
RN notes Received patient in bed undergoing dialysis with no distress noted. Breathing even and unlabored. Vent setting well tolerated. Alert and oriented. Able to verbally communicate needs. No complaint of pain or discomfort. Dialysis output 2l. Wound treatment done. Lab ([facility]) called, blood culture results gram positive cocci in clusters for 4 bottles. Relayed to MD. waiting for response. Kept clean and dry. Will endorse to next shift for continuity of care.
--- NOTE | 2020-07-04 07:33 | NUR ---
ATOMIC WELDER OPENING NOTES RECEIVED PATIENT IN BED, AWAKE, A/O X4. PATIENT ON VENT SETTING; TOLERATING WELL. BREATHING IS EVEN AND UNLABORED. PATIENT IS ABLE TO MAKE HER NEEDS KNOWN. NO COMPLAINS OF PAIN OR DISCOMFORT. LIJ-TLC AND RUCW PERMA CATH PRESENT AND IN PLACE. SAFETY PRECAUTIONS IN PLACE; BED IN LOW POSITION AND LOCKED, RAILS UP X2, CALL LIGHT WITHIN REACH. WILL CONTINUE TO MONITOR PATIENT.
[2020-07-04] MEDS: SEVELAMER CARBONATE 800 MG TABLET PO SCH ×2 (07:38→12:49)
[2020-07-04] MEDS: LEVOTHYROXINE SODIUM 100 MCG TABLET PO SCH (07:38)
[2020-07-04] MEDS: BLOOD SUGAR DIAGNOSTIC 1 EACH STRIP VI SCH ×2 (07:46→12:40)
[2020-07-04] MEDS: INSULIN REGULAR, HUMAN 100 UNIT/ML 3 ML VIAL SQ PRN (07:48)
[2020-07-04 08:04] VITALS: BP 167/81
--- NOTE | 2020-07-04 08:35 | NUR ---
BATTER SCALER NOTES DUE TO ASSIGNMENT CHANGE PATIENT IS TRANSFERRED FOR CONTINUITY OF CARE TO A DIFFERENT RN.
[2020-07-04] MEDS: POLYETHYLENE GLYCOL 3350 17 GM POWD.PACK PO SCH (09:00)
[2020-07-04] MEDS: FAMOTIDINE (20 MG) 20 MG TABLET PO SCH (09:52)
[2020-07-04] MEDS: ESCITALOPRAM OXALATE (10 MG) 10 MG TABLET PO SCH (09:53)
[2020-07-04] MEDS: FERROUS SULFATE (325 MG) 325 MG/TAB TABLET PO SCH (09:53)
[2020-07-04 10:38] LABS: BASOPHILS % (AUTO) 0.2 % (0.0-2.0); EOSINOPHILS % (AUTO) 0.1 % (0.0-6.0); HEMATOCRIT 35 % (33-45); HEMOGLOBIN 10.8 g/dL (11.5-14.8); LYMPHOCYTES # (AUTO) 0.6 /CMM (0.8-4.8); MEAN CORPUSCULAR HGB CONC 31 g/dl (31.0-36.0); MEAN CORPUSCULAR VOLUME 100 fL (82-100); MONOCYTES # (AUTO) 0.2 /CMM (0.1-1.30); MONOCYTES % (AUTO) 2.4 % (2.0-12.0); NEUTROPHILS % (AUTO) 88.3 % (43.0-81.0); PLATELET COUNT (AUTO) 184 /CMM (150-450); RED BLOOD CELL COUNT(AUTO) 3.49 MIL/uL (4.0-5.2); WHITE BLOOD COUNT (AUTO) 6.9 K/uL (4.3-11.0)
[2020-07-04 10:52] LABS: CALCIUM, SERUM 8.6 mg/dL (8.5-10.1); CREATININE 5.9 mg/dL (0.6-1.3)
[2020-07-04] MEDS ORDERED: MUPIROCIN OINT 2% 22 GM TUBE NS SCH (11:30)
[2020-07-04 12:00] VITALS: BP 126/80
--- NOTE | 2020-07-04 17:25 | NUR ---
DISCHARGE INSTRUCTIONS GIVEN TO MAX PRITCHARD [facility]INSTRUCTED TO ADMINISTER VANCO IV FOR 7 DAYS WITH HEMODIALYSIS. ALSO ADMINISTER BACTROBAN OINTMENT Q 12 HRS VIA NARES FOR 7 DAYS. MED RECONCILIATION AND PT TEACHING HANDOUTS HANDED TO THE MUD WORKER TO BE GIVEN TO MAX PRITCHARD OF LIZETH CLEMENT. IJ TLC REMOVED WITH NO BLEEDING NOTED.APPLIED PRESSURE DRESSING FOR 10 MINS.PT TOLERATED WELL.
[2020-07-04] MEDS ORDERED: INSULIN GLARGINE, 100 UNIT/ML CARTRIDGE SQ SCH (22:00)
== END 2020-07-04 16:05 | DRG 194 ==
LOC: ER 13:29 → ICU 16:19 → TELE1 07-03 17:23
PROC: 5A1945Z Respiratory Ventilation, 24-96 Consecutive Hours (ICD-10-PCS; principal; 2020-07-01)
PROC: 5A1D70Z Performance of Urinary Filtration, Intermittent, Less than 6 Hours Per Day (ICD-10-PCS; 2020-07-02)
DX: I13.2 Hypertensive heart and chronic kidney disease with heart failure and with stage 5 chronic kidney disease, or end stage renal disease (principal); I95.9 Hypotension, unspecified; N18.6 End stage renal disease; Z99.2 Dependence on renal dialysis; D63.8 Anemia in other chronic diseases classified elsewhere; E11.22 Type 2 diabetes mellitus with diabetic chronic kidney disease; E66.2 Morbid (severe) obesity with alveolar hypoventilation; I50.9 Heart failure, unspecified; Z79.4 Long term (current) use of insulin; Z79.51 Long term (current) use of inhaled steroids; Z79.01 Long term (current) use of anticoagulants; Z79.899 Other long term (current) drug therapy; E78.5 Hyperlipidemia, unspecified; Z68.44 Body mass index [BMI] 60.0-69.9, adult; F20.9 Schizophrenia, unspecified; F32.9 Major depressive disorder, single episode, unspecified; F41.9 Anxiety disorder, unspecified; Z99.11 Dependence on respirator [ventilator] status; Z93.0 Tracheostomy status; Z93.1 Gastrostomy status; R13.10 Dysphagia, unspecified; E03.9 Hypothyroidism, unspecified; D69.6 Thrombocytopenia, unspecified; J96.10 Chronic respiratory failure, unspecified whether with hypoxia or hypercapnia; F39 Unspecified mood [affective] disorder; Z79.890 Hormone replacement therapy; Z86.14 Personal history of Methicillin resistant Staphylococcus aureus infection
CPT/HCPCS: 31720; 36415; 71045-TC; 80048-TC; 80076-TC; 80202-TC; 82533; 82962-TC; 83605-TC; 83735-TC; 84100-TC; 84439-TC; 84443-TC; 84484-TC; 85025-TC; 85730-TC; 87040-TC; 87081-TC; 87186-TC; 90935-TC; 92526; 92611-TC; 94002-TC; 94003-TC; 94760-TC; 94762-TC; 94799-TC; 99082-TC; A4216; A4217; A4623; A6253; A6403; G0378; J0696; J1644; J1720; J1815; J3370; J7040; J7050; J7060; P9047; U0003

== ENCOUNTER 2021-01-02 16:06 | Inpatient (IN) | payer MEDICAID ==
[~2021-01-02] VITALS: Ht 157.5 cm; Wt 151.5 kg
[~2021-01-02 16:06] MED LIST changes: -COLL30OI TP; -DIPH25CA51 PO; -EPOE1000 SQ; -HYDR-4354 PO; +INSU100C10 SQ; -INSU100V27 SQ; +INSU100V7 SQ; +LEVO100T PO; -LEVO175T7 PO; -LISI-603 PO; +LISI20TA30 PO; -LORA-259 PO; +MIDO10TA PO
--- NOTE | 2021-01-02 16:15 | NUR ---
[id number] frm dialysis center c/o chest pain while being dialized. nitro spray x 1 given well logging captain. Patient a/ox4, breathing even and unlabored, no sob noted. Pt has a trache, dependent on mechanical ventilator. Rt at bedside.
--- NOTE | 2021-01-02 16:16 | NUR ---
DR. MILLER AT BEDSIDE FOR EVAL.
[2021-01-02 16:37] LABS: BASOPHILS # (AUTO) 0.1 /CMM (0.0-0.2); BASOPHILS % (AUTO) 0.8 % (0.0-2.0); EOSINOPHILS % (AUTO) 1.9 % (0.0-6.0); HEMATOCRIT 36 % (33-45); HEMOGLOBIN 11.5 g/dL (11.5-14.8); LYMPHOCYTES # (AUTO) 1.3 /CMM (0.8-4.8); LYMPHOCYTES % (AUTO) 10.6 % (20.0-44.0); MEAN CORPUSCULAR HGB CONC 32 g/dl (31.0-36.0); MEAN CORPUSCULAR VOLUME 98 fL (82-100); MONOCYTES # (AUTO) 0.3 /CMM (0.1-1.30); MONOCYTES % (AUTO) 2.7 % (2.0-12.0); NEUTROPHILS # (AUTO) 10.4 /CMM (1.8-8.9); PLATELET COUNT (AUTO) 245 /CMM (150-450); RED BLOOD CELL COUNT(AUTO) 3.62 MIL/uL (4.0-5.2); WHITE BLOOD COUNT (AUTO) 12.4 K/uL (4.3-11.0)
[2021-01-02 16:45] LABS: CALCIUM, SERUM 7.5 mg/dL (8.5-10.1); CARBON DIOXIDE 26 mmol/L (21-32); CHLORIDE 94 mmol/L (98-107); CREATININE 4.7 mg/dL (0.6-1.3); GLUCOSE 149 mg/dL (74-106); POTASSIUM 3.7 mmol/L (3.5-5.1); SODIUM SERUM 132 mmol/L (136-145); UREA NITROGEN, BLOOD 27 mg/dL (7-18)
[2021-01-02] MEDS ORDERED: ZINC1CAP2 PO (17:00)
--- NOTE | 2021-01-02 17:24 | NUR ---
COVID SWAB SENT.
--- NOTE | 2021-01-02 18:06 | NUR ---
room 120-1
--- NOTE | 2021-01-02 18:19 | NUR ---
REPORT GIVEN TO THOMAS SANTANA FOR PANTERA.
[2021-01-02] MEDS ORDERED: DEXTROSE 50%-WATER 50 ML DISP.SYRIN IV PRN (18:30)
[2021-01-02] MEDS ORDERED: ONDANSETRON HCL/PF 4 MG/2 ML VIAL IVP PRN (18:30)
[2021-01-02] MEDS ORDERED: HYDROCODONE/APAP 5/325MG TABLET PO PRN (18:30)
[2021-01-02] MEDS ORDERED: Z GUARD REMEDY 2 OZ OINT TP PRN (18:30)
[2021-01-02] MEDS ORDERED: MAG HYDROX/AL HYDROX/SIMETH 30 ML UDC PO PRN (18:30)
[2021-01-02] MEDS ORDERED: ACETAMINOPHEN 325 MG TABLET PO PRN ×2 (18:30)
[2021-01-02] MEDS ORDERED: BISACODYL SUPP (10 MG) 10 MG/SUPP.RECT SUPP.RECT RC PRN (18:30)
[2021-01-02] MEDS ORDERED: Medication Not On Formulary EA (Ipratropium/Albuterol Sulfate (Duoneb 2.5-0.5 Mg/3 Ml So IH PRN (18:30)
[2021-01-02] MEDS ORDERED: NA PHOS,M-B/NA PHOS,DI-BA 1 EA ENEMA RC PRN (18:30)
[2021-01-02] MEDS ORDERED: MAGNESIUM HYDROXIDE 30 ML UDC PO PRN (18:30)
--- NOTE | 2021-01-02 18:50 | NUR ---
RN NOTE RECEIVED PATIENT FROM MAX CARDONA VIA JASMIN. PATIENT IS CURRENTLY ON TRACH/VENT. WILL ENDORSE TO ELEVATOR EXAMINER AND ADJUSTER RN FOR PANTERA.
--- NOTE | 2021-01-02 18:55 | NUR ---
PATIENT TRANSFERRED TO ROOM 120-1 VIA ACLS PROTOCOL, IN STABLE CONDITION. NO DISTRESS NOTED. NEEDS ATTENDED, ENDORSED TO THOMAS SANTANA.
--- NOTE | 2021-01-02 19:01 | NUR ---
RT PATIENT WAS TRANSPORTED TO ROOM 120 FROM ER BED 8. PATIENT WAS CONNECTED ON VENTILATOR ON NOTED VENT SETTINGS. ENDORSED TO THE ASSIGN RT FOR CONTINUITY OF CARE.NO SOB NOTED AT THIS TIME. Addendum: 01/02/21 at 1906 by UNA HUFFMAN RT Amended: Links added.
[2021-01-02] MEDS ORDERED: Medication Not On Formulary EA (Ipratropium/Albuterol Sulfate (Duoneb 2.5-0.5 Mg/3 Ml So IH SCH (19:30)
[2021-01-02] MEDS ORDERED: ALBUTEROL FS 2.5 MG/0.5 ML VIAL.NEB NEB PRN (19:30)
[2021-01-02] MEDS ORDERED: IPRATROPIUM NEB FS 0.5 MG/2.5 ML AMPUL.NEB NEB PRN (19:30)
[2021-01-02 20:00] VITALS: BP 95/57
--- NOTE | 2021-01-02 20:00 | NUR ---
RN NOTE RECEIVED PT IN BED, ALERT AND ORIENTED X 4. ON TRACH/VENT. WITH SETTING OF TV 450 FIO2 40% PEEP 5. DENIES ANY SOB. PT ADMITTED DUE TO CHEST PAIN, DENIES AT THIS TIME. TELE MONITOR SHOWS SINUS RHYTHM WITH HR OF 79. NO DISTRESS NOTED. PT WITH DISTENDED ABDOMEN, DRAINING CLEAR FLUID ON RIGHT SIDE. NO FOUL ODOR NOTED. ALSO NOTED WITH MASD ON ABD FOLDS, BUTTOCKS AND THIGH AREA. PICTURES TAKEN AND PUT ON CHART. RIGHT HAND IV PATENT AND INTACT. ALL SAFETY MEASURES IMPLEMENTED PER PROTOCOL CALL LIGHT WITHIN REACH. BED LOCKED IN LOWEST POSITION.
[2021-01-02] MEDS: ALBUTEROL FS 2.5 MG/0.5 ML VIAL.NEB NEB SCH (20:16)
[2021-01-02] MEDS: IPRATROPIUM NEB FS 0.5 MG/2.5 ML AMPUL.NEB NEB SCH (20:16)
[2021-01-02] MEDS: METOPROLOL TARTRATE 25 MG TABLET PO SCH (22:00)
[2021-01-02] MEDS: HEPARIN SODIUM, PORCINE 5000 UNITS/1 ML VIAL SQ SCH (22:22)
[2021-01-02] MEDS: BLOOD SUGAR DIAGNOSTIC 1 EACH STRIP VI SCH (22:56)
[2021-01-02] MEDS: *INSULIN REGULAR(HUMULIN R)HUM 100 UNIT/ML VIAL SQ PRN (22:58)
[2021-01-03] VITALS: BP 136/63
[2021-01-03] MEDS: IPRATROPIUM NEB FS 0.5 MG/2.5 ML AMPUL.NEB NEB SCH ×4 (02:15→19:30)
[2021-01-03] MEDS: ALBUTEROL FS 2.5 MG/0.5 ML VIAL.NEB NEB SCH ×4 (02:15→19:30)
[2021-01-03 04:00] VITALS: BP 111/60
[2021-01-03] MEDS: HEPARIN SODIUM, PORCINE 5000 UNITS/1 ML VIAL SQ SCH ×3 (05:07→21:27)
--- NOTE | 2021-01-03 06:34 | NUR ---
RN NOTE PT TOLERATING VENT SETTINGS. NO RESP DISTRESS NOTED. SUCTIONED NEEDED. O2 SAT AT 100 %. PT ABLE TO MAKE NEEDS KNOWN, NEEDS ATTENDED. STILL DRAINING FLUIDS ON RIGHT ABDOMEN. PT DENIES ANY PAIN. PER PT ITS BEEN LIKE THAT FOR MORE THAN A WEEK NOW. WITH RIGHT CHEST PERMACATH, DRESSING CLEAN DRY AND INTACT. ALL SAFETY MEASURES MAINTAINED. KEPT CLEAN AND DRY AND COMFORTABLE IN BED. WILL ENDORSE TO NEXT SHIFT NURSE FOR PANTERA.
[2021-01-03 06:50] LABS: BASOPHILS # (AUTO) 0.1 /CMM (0.0-0.2); BASOPHILS % (AUTO) 0.8 % (0.0-2.0); EOSINOPHILS % (AUTO) 2.9 % (0.0-6.0); HEMATOCRIT 35 % (33-45); HEMOGLOBIN 11.1 g/dL (11.5-14.8); LYMPHOCYTES # (AUTO) 1.3 /CMM (0.8-4.8); LYMPHOCYTES % (AUTO) 13.5 % (20.0-44.0); MEAN CORPUSCULAR HGB CONC 32 g/dl (31.0-36.0); MEAN CORPUSCULAR VOLUME 101 fL (82-100); MONOCYTES # (AUTO) 0.3 /CMM (0.1-1.30); MONOCYTES % (AUTO) 3.3 % (2.0-12.0); NEUTROPHILS # (AUTO) 7.5 /CMM (1.8-8.9); NEUTROPHILS % (AUTO) 79.5 % (43.0-81.0); PLATELET COUNT (AUTO) 189 /CMM (150-450); RED BLOOD CELL COUNT(AUTO) 3.45 MIL/uL (4.0-5.2); WHITE BLOOD COUNT (AUTO) 9.5 K/uL (4.3-11.0)
[2021-01-03 07:12] LABS: CALCIUM, SERUM 7.3 mg/dL (8.5-10.1); CREATININE 5.7 mg/dL (0.6-1.3); MAGNESIUM 1.9 mg/dL (1.8-2.4); POTASSIUM 4.1 mmol/L (3.5-5.1)
[2021-01-03] MEDS ORDERED: LEVOTHYROXINE SODIUM 100 MCG TABLET PO SCH (07:30)
--- NOTE | 2021-01-03 07:45 | NUR ---
RN OPENING NOTE PATIENT IN BED AXOX4 .NO SOB NO DISTRESS NOTED.ON VENTILATOR.TOLERATING SETTINGS WELL.AWAITING WOUND CARE CONSULT.IV LINE IS INTACT AND PATENT.SAFETY AND ASPIRATION MEASURES IN PLACE.NO CHEST PAIN NOTED.WILL CONTINUE TO MONITOR.
[2021-01-03 08:00] VITALS: BP 111/70
[2021-01-03] MEDS: SEVELAMER CARBONATE 800 MG TABLET PO SCH ×3 (08:02→17:18)
[2021-01-03] MEDS: INSULIN LISPRO/ASPART 100 UNIT/ML CARTRIDGE SQ SCH ×3 (08:28→17:19)
[2021-01-03] MEDS: BLOOD SUGAR DIAGNOSTIC 1 EACH STRIP VI SCH ×4 (08:29→22:09)
[2021-01-03] MEDS ORDERED: MIDODRINE HCL (5MG) 5 MG TABLET PO SCH (09:00)
[2021-01-03] MEDS: POLYETHYLENE GLYCOL 3350 17 GM POWD.PACK PO SCH ×2 (09:00→09:01)
[2021-01-03] MEDS: ESCITALOPRAM OXALATE (10 MG) 10 MG TABLET PO SCH (09:01)
[2021-01-03] MEDS: VIT B CMPLX 3/FA/VIT C/BIOTIN 1 TAB TABLET PO SCH (09:01)
[2021-01-03] MEDS: ZINC SULFATE 220 MG CAPSULE PO SCH (09:01)
[2021-01-03] MEDS: METOPROLOL TARTRATE 25 MG TABLET PO SCH ×2 (09:01→21:00)
[2021-01-03] MEDS: LISINOPRIL (20MG) 20 MG TABLET PO SCH (09:02)
[2021-01-03] MEDS: FERROUS SULFATE (325 MG) 325 MG/TAB TABLET PO SCH ×2 (09:02→17:18)
[2021-01-03] MEDS: FAMOTIDINE (20 MG) 20 MG TABLET PO SCH (09:02)
[2021-01-03] MEDS: PROSOURCE / PROSTAT (PYXIS) 30 ML UDC PO SCH ×2 (09:03→17:00)
[2021-01-03 10:16] LABS: THYROID STIMULATING HORMONE 50.077 uIU/mL (0.358-3.74)
[2021-01-03 12:00] VITALS: BP 120/64
[2021-01-03] MEDS: MIDODRINE HCL (5MG) 5 MG TABLET PO SCH ×3 (12:27→21:00)
--- NOTE | 2021-01-03 12:28 | NUR ---
EMPLOYMENT LEGAL ASSISTANT NOTE PATIENT BP IS 120/64.MIDODRINE NOT ADMINISTERED.
--- NOTE | 2021-01-03 12:45 | NUR ---
SEAM SEWER NOTE MIDODRINE IS ADMINISTERED.DIALYSIS NURSE AT BEDSIDE.
[2021-01-03 16:00] VITALS: BP 121/62
--- NOTE | 2021-01-03 18:00 | NUR ---
PATIENT REFUSED PROSTAT.OFFEREEDX3.EDUCATED PATIENT.STILL REFUSING.
--- NOTE | 2021-01-03 18:46 | NUR ---
RN CLOSING NOTE PATIENT IN BED AXOX4 .NO SOB NO DISTRESS NOTED.ON VENTILATOR.TOLERATING SETTINGS WELL.AWAITING WOUND CARE CONSULT.IV LINE IS INTACT AND PATENT.S/P HEMODIALYSIS WITH 2L OUT.SAFETY AND ASPIRATION MEASURES IN PLACE.NO CHEST PAIN NOTED.AWAITING FOR [facility].WILL ENDORSE TO PM NURSE FOR PANTERA.
[2021-01-03 20:00] VITALS: BP 112/61
--- NOTE | 2021-01-03 20:00 | NUR ---
RN NOTE RECEIVED PT IN BED, AOX4. ON VENT, TOLERATING WELL. O2 SAT AT 100 %. DENIES SOB OR CHEST PAIN. NOT IN ANY DISTRESS. SR ON TELE MONITOR WITH HR OF 66. COMPLAINS OF PAIN ON RIGHT LEG, OFFERED PAIN MED, REFUSED. REPOSITIONED, WAS RELIEVED. IV PATENT AND INTACT. KEPT COMFORTABLE. ALL SAFETY MEASURES IMPLEMENTED PER PROTOCOL. CALL LIGHT WITHIN REACH, BED LOCKED IN LOWEST POSITION. SIDE RAILS UP.
--- NOTE | 2021-01-03 21:35 | NUR ---
RN NOTE PT REFUSED TO TAKE METOPROLOL AND MIDODRINE. EXPLAINED RISKS AND BENEFITS 3X, STILL REFUSED. PT VERBALIZES "MY BLOOD PRESSURE IS FINE". BP 112/61 HR 68. WILL CONTINUE TO MONITOR.
[2021-01-03] MEDS: *INSULIN REGULAR(HUMULIN R)HUM 100 UNIT/ML VIAL SQ PRN (22:10)
--- NOTE | 2021-01-03 22:27 | NUR ---
RT NOTE Pt rec'd trached via Shiley 6 CUFFLESS with Passy cathy speaking valve in place. Pt on mech vent on noted AC mode settings. Due to the cuffless trach pt is unable to maintain adequate volumes through the mech vent. Pt is awake and alert. Pt states she is cuffless and on mech vent at the facility she stays at. Pt is comfortable and vital signs are stable. Pt sx'd for small amt of pale yellow secretions. Alarms are set and audible. vent plugged into red outlet. Ambu bag and emergency spare trach beside. will continue to monitor closely. Addendum: 01/03/21 at 2242 by RIVKA BRUNO RT Amended: Links added.
[2021-01-04] VITALS: BP 134/67
[2021-01-04] MEDS: IPRATROPIUM NEB FS 0.5 MG/2.5 ML AMPUL.NEB NEB SCH ×5 (00:57→19:30)
[2021-01-04] MEDS: ALBUTEROL FS 2.5 MG/0.5 ML VIAL.NEB NEB SCH ×5 (00:57→19:30)
--- NOTE | 2021-01-04 02:43 | NUR ---
RN NOTE PT REMOVED PULSE OX/MONITOR. NO RESP DISTRESS NOTED. TOLERATING VENT SETTINGS. COMPLAINING OF RIGHT LEG PAIN, REPOSITIONED MULTIPLE TIMES TO MEET COMFORT. REFUSED TO TAKE PAIN MED.
[2021-01-04 04:30] VITALS: BP 136/72
[2021-01-04] MEDS: MIDODRINE HCL (5MG) 5 MG TABLET PO SCH ×3 (05:00→21:00)
[2021-01-04] MEDS: HEPARIN SODIUM, PORCINE 5000 UNITS/1 ML VIAL SQ SCH ×3 (05:16→21:24)
--- NOTE | 2021-01-04 06:40 | NUR ---
RN NOTE PT SLEEPING, AROUSES EASILY. NO S/SX OF DISTRESS NOTED, TOLERATING VENT SETTING. CONTINUE ON TELE MONITORING, SR. KEPT CLEAN AND COMFORTABLE IN BED. PERMACATH AND IV ON RHAND REMAIN INTACT. NO SIGNS OF INFECTION NOTED. ALL NEEDS ATTENDED. CALL LIGHT WITHIN REACH AT ALL TIMES, WILL ENDORSE TO NEXT SHIFT NURSE FOR PANTERA.
--- NOTE | 2021-01-04 07:30 | NUR ---
RN OPENING NOTE TRACH PT LYING IN BED ON VENT SETTINGS PER MD ORDER: SHILEY 6, AC 20, TV 450, FIO2 40%, PEEP 5, NO SIGNS OF RESP DISTRESS OR SOB, BREATHING EVEN AND UNLABORED, SPO2 100%. PT A/Ox4, AGITATED STATING SHE DOESN'T WANT HER MORNING MEDS AND SHE JUST WANTS TO SLEEP. INFORMED PT THAT I WOULD ALLOW HER TO REST NOW COME BACK AT 0900 TO SEE IF SHE WANTS AM MEDS, WILL PROVIDE TEACHING/EDUCATION THEN. PT HAS MASD BILAT BUTTOCKS EXTENDING TO THIGHS, OPEN WOUND ON RLQ ABD DRAINING, CURRENTLY COVERED WITH BAG. PT DENIES PAIN/DISCOMFORT. ALL PT SAFETY PRECAUTIONS IN PLACE, BED PARRISH DAND IN LOWEST POSITION, BED ALARM ON, PT CALL LIGHT WITHIN REACH, SIDE RAILS UP x2, WILL CONT TO MONITOR
[2021-01-04 08:00] VITALS: BP 100/40
[2021-01-04] MEDS: INSULIN LISPRO/ASPART 100 UNIT/ML CARTRIDGE SQ SCH ×3 (08:05→17:13)
[2021-01-04] MEDS: BLOOD SUGAR DIAGNOSTIC 1 EACH STRIP VI SCH ×4 (08:05→22:10)
[2021-01-04] MEDS: POLYETHYLENE GLYCOL 3350 17 GM POWD.PACK PO SCH (09:00)
[2021-01-04] MEDS: LISINOPRIL (20MG) 20 MG TABLET PO SCH (09:00)
[2021-01-04] MEDS: METOPROLOL TARTRATE 25 MG TABLET PO SCH ×2 (09:00→21:25)
[2021-01-04] MEDS: PROSOURCE / PROSTAT (PYXIS) 30 ML UDC PO SCH ×2 (09:00→17:00)
--- NOTE | 2021-01-04 09:15 | NUR ---
RN NOTE PER KULWINDER MARTINEZ TO HOLD LISINOPRIL AND METOPROLOL. PT BP 100/40 AND HR 65
[2021-01-04] MEDS: ZINC SULFATE 220 MG CAPSULE PO SCH (09:16)
[2021-01-04] MEDS: FERROUS SULFATE (325 MG) 325 MG/TAB TABLET PO SCH ×3 (09:16→17:10)
[2021-01-04] MEDS: FAMOTIDINE (20 MG) 20 MG TABLET PO SCH (09:17)
[2021-01-04] MEDS: ESCITALOPRAM OXALATE (10 MG) 10 MG TABLET PO SCH (09:17)
[2021-01-04] MEDS: SEVELAMER CARBONATE 800 MG TABLET PO SCH ×2 (09:18→12:10)
[2021-01-04] MEDS: VIT B CMPLX 3/FA/VIT C/BIOTIN 1 TAB TABLET PO SCH (09:18)
--- NOTE | 2021-01-04 10:00 | NUR ---
RN NOTE PT TOOK MOST MORNING MEDS, SEEMS TO BE MORE COMPLIANT NOW
[2021-01-04 12:00] VITALS: BP 108/48
[2021-01-04] MEDS: INSULIN REGULAR, HUMAN 100 UNIT/ML 3 ML VIAL SQ PRN (12:13)
[2021-01-04] MEDS ORDERED: SEVELAMER CARBONATE 800 MG POWD.PACK GT SCH (13:00)
[2021-01-04] MEDS: SEVELAMER CARBONATE 800 MG POWD.PACK PO SCH ×3 (13:39→17:35)
[2021-01-04 16:00] VITALS: BP 104/44
[2021-01-04] MEDS ORDERED: PROSOURCE / PROSTAT (PYXIS) 30 ML UDC PO SCH (17:00)
--- NOTE | 2021-01-04 17:26 | NUR ---
RN NOTE PT REFUSED PROSTAT x3 STATING IT GIVES HER DIARRHEA. PT EDUCATION/TEACHING OCCURRED EACH TIME, PT STILL REFUSED. PT ALSO REFUSED Z-GUARD x2 AT ABDOMINAL FOLDS AND GLUTEAL FOLDS AND BILAT THIGHS, WITH MYSELF AND MY CONTROLLER OPERATIONS AND HR MANAGER. PT TEACHING OCCURRED BOTH TIMES, PT STILL REFUSED
--- NOTE | 2021-01-04 18:41 | NUR ---
RN CLOSING NOTE PT RESTING IN BED COMFORTABLY ON SAME VENT SETTINGS START OF SHIFT, SPO2 100%, NO SIGNS OF RESP DISTRESS OR SOB, BREATHING EVEN AND UNLABORED. NO CHANGES TO PT STATUS DURING SHIFT, PT STABLE. PT TURNED Q2H. PT ABDOMINAL RLQ DRAINED 400 CC OF CLEAR YELLOW FLUID. PT AT TIMES REFUSED MEDS THROUGHOUT SHIFT IN WHICH PT EDUCATION WAS CONDUCTED INCLUDING RISKS AND BENEFITS OF EACH MED/TREATMENT REFUSED. ALL PT SAFETY PRECAUTIONS IN PLACE, BED LOCKED AND IN LOWEST POSITION, CALL LIGHT WITHIN REACH, SR UP x2, HOB SEMIFOWLER'S, WILL ENDORSE PANTERA TO ONCOMING RN
[2021-01-04 20:00] VITALS: BP 124/63
--- NOTE | 2021-01-04 20:00 | NUR ---
RN NOTE RECEIVED PT IN BED A/A/O X3, PT IS ON MECHANICAL VENT VIA TRACH STING 100%, ON TELE MONITOR SHOWING SR IN 60s. PT "S IV IS DISLODGED, PT REFUSES TO REINSERT NEW IV OREN HYGIENE ASSISTANT NOTIFIED. SAFETY MEASURES IN PLACE.
--- NOTE | 2021-01-04 21:26 | NUR ---
miodrine not given sbp 124.
[2021-01-05] VITALS: BP 100/57
[2021-01-05] MEDS: ALBUTEROL FS 2.5 MG/0.5 ML VIAL.NEB NEB SCH ×4 (01:52→19:31)
[2021-01-05] MEDS: IPRATROPIUM NEB FS 0.5 MG/2.5 ML AMPUL.NEB NEB SCH ×4 (01:52→19:31)
[2021-01-05 04:00] VITALS: BP 113/54
[2021-01-05] MEDS: MIDODRINE HCL (5MG) 5 MG TABLET PO SCH ×3 (05:00→20:26)
[2021-01-05] MEDS: HEPARIN SODIUM, PORCINE 5000 UNITS/1 ML VIAL SQ SCH ×3 (05:21→20:17)
--- NOTE | 2021-01-05 05:23 | NUR ---
midodrine not given sbp 113.
--- NOTE | 2021-01-05 07:19 | NUR ---
RN NOTE REPORT GIVEN TO INCOMING SHIFT FOR PANTERA.
[2021-01-05] MEDS: BLOOD SUGAR DIAGNOSTIC 1 EACH STRIP VI SCH ×4 (07:30→21:25)
--- NOTE | 2021-01-05 07:30 | NUR ---
RN OPENING NOTE A/Ox4 TRACH PT LYING IN BED ON VENT SETTINGS PER MD ORDER: SHILEY 6, AC 20, TV 450, FIO2 40%, PEEP 5, NO SIGNS OF RESP DISTRESS OR SOB, BREATHING EVEN AND UNLABORED, SPO2 100%. PER FURNACE COOLER RN REPORT, PT IV SITE WAS DISLODGED AND PT REFUSED ANOTHER IV SITE TO BE PLACED. PT STILL REFUSES IV ACCESS CURRENTLY, TEACHING GIVEN TO PT. PT HAS BILAT BUTTOCKS EXTENDING TO POSTERIOR THIGHS SCARRING, SKIN WEEPING ON RLQ ABD, AND ABDOMINAL SCARRING NOTED. PT DENIES PAIN/DISCOMFORT. ALL PT SAFETY PRECAUTIONS IN PLACE, BED LOCKED AND IN LOWEST POSITION, BED ALARM ON, PT CALL LIGHT WITHIN REACH, SIDE RAILS UP x2, WILL CONT TO MONITOR
[2021-01-05 08:00] VITALS: BP 110/51
[2021-01-05] MEDS: PROSOURCE / PROSTAT (PYXIS) 30 ML UDC PO SCH ×2 (09:00→17:00)
[2021-01-05] MEDS: POLYETHYLENE GLYCOL 3350 17 GM POWD.PACK PO SCH (09:00)
--- NOTE | 2021-01-05 09:02 | NUR ---
WOUND CARE CONSULT: PT REFUSED SKIN ASSESSMENT AND REFUSES Z GUARD, STATING THAT SHE DOES NOT LIKE IT. PT NOTED TO HAVE WEEPING OF SKIN AT RT ABDOMINAL AREA, PRESENT ON ADMISSION. ADMISSION PHOTOS INDICATE SCARRING TO SACRUM, BUTTOCKS AND POSTERIOR THIGHS WELL ABDOMEN WITH SOME OPEN AREAS. DR RAMIREZ NOTIFIED OF SURGICAL CONSULT REQUEST. PT IS ON KENNETH ISOFLEX LOW AIRLOSS BED. RECOMMENDATIONS MADE FOR SKIN PROTECTION. DISCUSSED WITH NURSING STAFF. MD IN AGREEMENT WITH PLAN OF CARE.
[2021-01-05] MEDS: VIT B CMPLX 3/FA/VIT C/BIOTIN 1 TAB TABLET PO SCH (09:27)
[2021-01-05] MEDS: ZINC SULFATE 220 MG CAPSULE PO SCH (09:27)
[2021-01-05] MEDS: SEVELAMER CARBONATE 800 MG POWD.PACK PO SCH ×4 (09:28→17:00)
[2021-01-05] MEDS: ESCITALOPRAM OXALATE (10 MG) 10 MG TABLET PO SCH (09:28)
[2021-01-05] MEDS: FAMOTIDINE (20 MG) 20 MG TABLET PO SCH (09:28)
[2021-01-05] MEDS: LEVOTHYROXINE SODIUM 125 MCG TABLET PO SCH (09:28)
[2021-01-05] MEDS: METOPROLOL TARTRATE 25 MG TABLET PO SCH ×2 (09:34→20:25)
[2021-01-05] MEDS: LISINOPRIL (20MG) 20 MG TABLET PO SCH (09:34)
[2021-01-05] MEDS: INSULIN LISPRO/ASPART 100 UNIT/ML CARTRIDGE SQ SCH ×3 (09:35→17:16)
[2021-01-05] MEDS: INSULIN REGULAR, HUMAN 100 UNIT/ML 3 ML VIAL SQ PRN ×2 (09:36→12:46)
[2021-01-05] MEDS: FERROUS SULFATE (325 MG) 325 MG/TAB TABLET PO SCH ×2 (09:44→17:00)
[2021-01-05 12:00] VITALS: BP 93/32
--- NOTE | 2021-01-05 12:26 | NUR ---
RN NOTE BRUSHER AND SHEARER COULD NOT DRAW LABS THIS MORNING D/T PT BEING A HARD STICK. JUST F/U WITH LAB AND THEY STATED THEY WOULD TRY AGAIN SOON
--- NOTE | 2021-01-05 14:15 | NUR ---
RN NOTE PT REPORT GIVEN TO MAX MARIE,, AT RECEIVING FACILITY. MACHINE PIE MAKER TIME SCHEDULED FOR 1600 Addendum: 01/05/21 at 1416 by EMILY SALDIVAR RN DISREGARD ABOVE NOTE. WRONG PATIENT
--- NOTE | 2021-01-05 15:41 | NUR ---
RN NOTE- HD PT UNABLE TO TOLERATE HD. 0 L REMOVED. STARTING BP 97/39. LOWEST BP 62/26. CURRENT BP 97/47. DR MCMULLEN INFORMED. COTTAGE SUPERVISOR BRIAN WILL INFORM HAND BOBBIN CLEANER
[2021-01-05 16:00] VITALS: BP 97/41
[2021-01-05] MEDS: NYSTATIN TOP POWDER 15 GM BOTTLE TP SCH (18:00)
--- NOTE | 2021-01-05 18:53 | NUR ---
RN CLOSING NOTE PT VENT SETTINGS SAME START OF SHIFT, NO SOB OR RESP DISTRESS, SPO2 100%. UNABLE TO OBTAIN PT BLOOD FOR LABS TODAY AFTER MULTIPLE ATTEMPTS BY PHLEBOTOMISTS. PT DENIED IV ACCESS INSERTION, RECOMMEND MIDLINE IF PT TO STAY LONGER AND COMPLIANT WITH IV INSERTION. PT AT TIMES REFUSED MEDS THROUGHOUT SHIFT IN WHICH PT EDUCATION WAS CONDUCTED INCLUDEING RISKS AND BENEFITS. PT TRANSFERRED TO BARIATRIC BED. PT UNABLE TO TOLERATE HD TODAY, 0 L REMOVED. PT ANURIC, DID NOT VOID TODAY. ALL PT SAFETY PRECAUTIONS IN PLACE, BED LOCKED AND IN LOWEST POSITION, CALL LIGHT WITHIN REACH, SR UP x2, HOB SEMIFOWLER'S, WILL ENDORSE PANTERA TO ONCOMING RN
--- NOTE | 2021-01-05 19:20 | NUR ---
RN OPENING NOTE RECEIVED PATIENT IN BED RESTING,ALERT ORIENTED X4 ON MECHANICAL VENT,SETTING ON TRACH SHILEY #6 TV 450 PEEP 5 FIO2:40% AC 20 O2:100%,NO IV ACCESS,REFUSED TO HAVE IV LINE,AFTER EXPLAINED RISK OF THAT STILL REFUSED INCONTINENT BOWEL/BLADDER,HEAD OF BED ELEVATED,BED IN LOW POSITION AND LOCKED,CALL LIGHT WITHIN REACH,SAFETY MEASURE IMPLEMENT,CONTINUE TO MONITOR.
[2021-01-05 20:00] VITALS: BP 106/33
[2021-01-05 20:20] LABS: BASOPHILS % (AUTO) 0.2 % (0.0-2.0); EOSINOPHILS % (AUTO) 0.2 % (0.0-6.0); HEMATOCRIT 33 % (33-45); HEMOGLOBIN 10.4 g/dL (11.5-14.8); LYMPHOCYTES # (AUTO) 0.7 /CMM (0.8-4.8); LYMPHOCYTES % (AUTO) 5.4 % (20.0-44.0); MEAN CORPUSCULAR HGB CONC 32 g/dl (31.0-36.0); MEAN CORPUSCULAR VOLUME 101 fL (82-100); MONOCYTES # (AUTO) 0.3 /CMM (0.1-1.30); MONOCYTES % (AUTO) 2.4 % (2.0-12.0); NEUTROPHILS # (AUTO) 12.8 /CMM (1.8-8.9); NEUTROPHILS % (AUTO) 91.8 % (43.0-81.0); PLATELET COUNT (AUTO) 142 /CMM (150-450); RED BLOOD CELL COUNT(AUTO) 3.24 MIL/uL (4.0-5.2)
--- NOTE | 2021-01-05 20:26 | NUR ---
RN NOTE PATIENT BP IS 106/33 HR IS 70 CALLED PRINTING WORKER SUPERVISOR OREN RIGGS SHE ORDERED LOPRESSOR HOLD IF SBP<110 AND MIDODRINE PRN GIVE IF SBP<100 NOTED AND CARRIED OUT. HELD LOPRESSOR AND MIDODRINE,CONTINUE TO MONITOR.
[2021-01-05 21:02] LABS: CALCIUM, SERUM 7.4 mg/dL (8.5-10.1); CREATININE 6.4 mg/dL (0.6-1.3); POTASSIUM 4.5 mmol/L (3.5-5.1)
--- NOTE | 2021-01-05 22:00 | NUR ---
RN NOTE BLOOD SUGAR IS 78,GIVEN HER PUREE APPLE SAUCE AND PUDDING CONTINUE TO MONITOR.
[2021-01-06] VITALS: BP 115/68
[2021-01-06] MEDS: ALBUTEROL FS 2.5 MG/0.5 ML VIAL.NEB NEB SCH ×4 (01:57→19:46)
[2021-01-06] MEDS: IPRATROPIUM NEB FS 0.5 MG/2.5 ML AMPUL.NEB NEB SCH ×4 (01:57→19:46)
[2021-01-06 04:00] VITALS: BP 112/45
[2021-01-06] MEDS: HEPARIN SODIUM, PORCINE 5000 UNITS/1 ML VIAL SQ SCH ×3 (04:27→20:08)
[2021-01-06] MEDS: MIDODRINE HCL (5MG) 5 MG TABLET PO SCH ×3 (05:00→21:23)
--- NOTE | 2021-01-06 05:09 | NUR ---
RN NOTE HELD MIDODRINE SBP>100 CONTINUE TO MONITOR
--- NOTE | 2021-01-06 05:40 | NUR ---
RN NOTE PATIENT REFUSED TO BE CHANGED, OFFERED THREE TIMES STILL REFUSED CONTINUE TO MONITOR.
--- NOTE | 2021-01-06 06:41 | NUR ---
RN CLOSING NOTE PATIENT REMAINS ON ALERT ORIENTED X4 ON MECHANICAL VENT O2:100% NO SOB NOT ACUTE DISTRESS NOTED,NO IV ACCESS SHE REFUSED,ALSO SHE REFUSED TO BE CHANGED,ALL DUE MEDS GIVEN MD ORDERED,KEPT CALL LIGHT WITHIN REACH,KEPT COMFORTABLE,HEAD OF THE BED ELEVATED ALL THE TIME,SAFETY MEASURE IMPLEMENTED,ENDORSE NEXT COMING SHIFT FOR CONTINUATION OF CARE
[2021-01-06] MEDS: INSULIN LISPRO/ASPART 100 UNIT/ML CARTRIDGE SQ SCH ×3 (07:30→17:36)
--- NOTE | 2021-01-06 07:35 | NUR ---
ms rn received on bed, awake,alert,oriented x4 not in any form of distress, respirations even and unlabored,no sob noted,abdomen soft,positive bowel sounds,denies pain at this time, vent dependent patient,esrd on hd scheduled today. will monitor patient's condition.
[2021-01-06 08:00] VITALS: BP 95/47
--- NOTE | 2021-01-06 08:00 | NUR ---
ms rn due meds given, held b/p meds, b/p on lower side, will have hd today, midodrine will be given later before hd.
[2021-01-06] MEDS: LEVOTHYROXINE SODIUM 125 MCG TABLET PO SCH (08:10)
[2021-01-06] MEDS: SEVELAMER CARBONATE 800 MG POWD.PACK PO SCH ×3 (08:11→17:29)
--- NOTE | 2021-01-06 08:20 | NUR ---
ms johnny [id number]-held scheduled insulin sq at this time.
[2021-01-06] MEDS: BLOOD SUGAR DIAGNOSTIC 1 EACH STRIP VI SCH ×4 (08:36→22:29)
[2021-01-06] MEDS: LISINOPRIL (20MG) 20 MG TABLET PO SCH (08:37)
[2021-01-06] MEDS: METOPROLOL TARTRATE 25 MG TABLET PO SCH ×2 (08:38→21:22)
[2021-01-06] MEDS: ESCITALOPRAM OXALATE (10 MG) 10 MG TABLET PO SCH (08:38)
[2021-01-06] MEDS: FAMOTIDINE (20 MG) 20 MG TABLET PO SCH (08:39)
[2021-01-06] MEDS: FERROUS SULFATE (325 MG) 325 MG/TAB TABLET PO SCH ×2 (08:41→17:29)
[2021-01-06] MEDS: VIT B CMPLX 3/FA/VIT C/BIOTIN 1 TAB TABLET PO SCH (08:41)
[2021-01-06] MEDS: ZINC SULFATE 220 MG CAPSULE PO SCH (08:41)
[2021-01-06] MEDS: POLYETHYLENE GLYCOL 3350 17 GM POWD.PACK PO SCH (08:43)
[2021-01-06] MEDS: PROSOURCE / PROSTAT (PYXIS) 30 ML UDC PO SCH ×2 (08:46→17:30)
--- NOTE | 2021-01-06 08:50 | NUR ---
ms rn patient started on hd, tolerating well.
[2021-01-06 12:00] VITALS: BP 107/40
[2021-01-06] MEDS: LORAZEPAM INJ 2 MG/ML VIAL IV PRN ×2 (12:30→12:38)
--- NOTE | 2021-01-06 12:30 | NUR ---
ms turner bs- [id number] - sched insulin held at this time.
--- NOTE | 2021-01-06 12:30 | NUR ---
ms johnny hd done w/ 1600ml output, v/s stable.
[2021-01-06] MEDS: LORAZEPAM 1 MG TABLET PO PRN (13:33)
[2021-01-06] MEDS: NYSTATIN TOP POWDER 15 GM BOTTLE TP SCH ×2 (14:40→17:29)
[2021-01-06] MEDS: INSULIN REGULAR, HUMAN 100 UNIT/ML 3 ML VIAL SQ PRN ×2 (17:37→22:32)
[2021-01-06 18:00] VITALS: BP 99/40
--- NOTE | 2021-01-06 18:00 | NUR ---
ms rn patient on bed, no distress, eating her dinner, will endorsed to square cutter for melissa.
--- NOTE | 2021-01-06 19:10 | NUR ---
RN OPENING NOTE RECEIVED PATIENT IN BED RESTING,ALERT ORIENTED X4 VERBALLY RESPONSIVE ABLE TO MAKE NEEDS KNOWN,ON MECHANICAL VENT,NO IV ACCESS,HD ACCESS ON RIGHT UPPER CHEST INTACT WITH DRESSING, INCONTINENT BOWEL/BLADDER,HEAD OF BED ELEVATED,BED IN LOW POSITION AND LOCKED,CALL LIGHT WITHIN REACH,SAFETY MEASURE IMPLEMENT,CONTINUE TO MONITOR.
--- NOTE | 2021-01-06 21:28 | NUR ---
RN NOTE VERIFIED TWO MEDS ORDER LOPRESSOR 25MG AND MIDODRINE 10 MG AT 2100 WITH J2EE ARCHITECT LINING STRAP CLOSER YASMIN SOTOMAYOR ORDERED GIVE BOTH BECAUSE BP IS 123/47 AND HR IS 70 DBP IS LOW FOR OTHER REASONS NOTED AND CARRIED OUT,CONTINUE TO MONITOR.
[2021-01-07] VITALS: BP 117/65
[2021-01-07] MEDS: ALBUTEROL FS 2.5 MG/0.5 ML VIAL.NEB NEB SCH ×4 (02:13→19:30)
[2021-01-07] MEDS: IPRATROPIUM NEB FS 0.5 MG/2.5 ML AMPUL.NEB NEB SCH ×4 (02:13→19:30)
[2021-01-07 04:00] VITALS: BP 102/36
[2021-01-07] MEDS: HEPARIN SODIUM, PORCINE 5000 UNITS/1 ML VIAL SQ SCH ×2 (04:55→12:25)
[2021-01-07] MEDS: MIDODRINE HCL (5MG) 5 MG TABLET PO SCH ×2 (04:57→09:52)
--- NOTE | 2021-01-07 06:46 | NUR ---
RN CLOSING NOTE PATIENT REMAINS ON ALERT ORIENTED X4 VERBALLY RESPONSIVE ON MECHANICAL VENT O2:100% ALL DUE MEDS GIVEN MD ORDERED KEPT CLEAN AND DRY ALL THE TIME,WOUND TREATMENT DONE,KEPT COMFORTABLE.KEPT CALL LIGHT WITHIN REACH,ALL NEEDS MET.ENDORSE NEXT COMING SHIFT FOR CONTINUATION OF CARE.
[2021-01-07 06:49] LABS: BASOPHILS % (AUTO) 0.2 % (0.0-2.0); HEMATOCRIT 32 % (33-45); LYMPHOCYTES # (AUTO) 1.4 /CMM (0.8-4.8); LYMPHOCYTES % (AUTO) 10.1 % (20.0-44.0); MEAN CORPUSCULAR HGB CONC 31 g/dl (31.0-36.0); MEAN CORPUSCULAR VOLUME 102 fL (82-100); MONOCYTES # (AUTO) 0.4 /CMM (0.1-1.30); MONOCYTES % (AUTO) 2.9 % (2.0-12.0); NEUTROPHILS # (AUTO) 12.1 /CMM (1.8-8.9); NEUTROPHILS % (AUTO) 84.8 % (43.0-81.0); RED BLOOD CELL COUNT(AUTO) 3.15 MIL/uL (4.0-5.2); WHITE BLOOD COUNT (AUTO) 14.3 K/uL (4.3-11.0)
[2021-01-07 06:54] LABS: CALCIUM, SERUM 7.6 mg/dL (8.5-10.1); CREATININE 6.5 mg/dL (0.6-1.3); POTASSIUM 4.5 mmol/L (3.5-5.1)
[2021-01-07] MEDS: BLOOD SUGAR DIAGNOSTIC 1 EACH STRIP VI SCH ×3 (07:38→17:30)
[2021-01-07] MEDS: *INSULIN REGULAR(HUMULIN R)HUM 100 UNIT/ML VIAL SQ PRN (07:42)
[2021-01-07] MEDS: INSULIN LISPRO/ASPART 100 UNIT/ML CARTRIDGE SQ SCH ×3 (07:43→17:15)
[2021-01-07] MEDS: LEVOTHYROXINE SODIUM 125 MCG TABLET PO SCH (07:48)
--- NOTE | 2021-01-07 07:51 | NUR ---
RN OPENING NOTE PATIENT IS IN BED WITH HOB AT SEMI FOWLERS POSITION. PATIENT IS ON TRACH/VENT WITH NO SIGNS OF LABORED BREATHING. PATIENT IS AOX3. NO IV ACCESS. BED IS LOCKED IN THE LOWEST POSITION, 3 GUARD RAILS RAISED, CALL HART WITHIN REACH, AND ALL HOSPITAL SAFETY PRECAUTIONS ARE BEING FOLLOWED. WILL CONTINUE TO MONITOR THROUGHOUT SHIFT.
[2021-01-07 08:00] VITALS: BP 115/48
[2021-01-07] MEDS: POLYETHYLENE GLYCOL 3350 17 GM POWD.PACK PO SCH (09:00)
[2021-01-07] MEDS: PROSOURCE / PROSTAT (PYXIS) 30 ML UDC PO SCH ×2 (09:00→17:00)
[2021-01-07] MEDS: VIT B CMPLX 3/FA/VIT C/BIOTIN 1 TAB TABLET PO SCH (09:24)
[2021-01-07] MEDS: ZINC SULFATE 220 MG CAPSULE PO SCH (09:24)
[2021-01-07] MEDS: ESCITALOPRAM OXALATE (10 MG) 10 MG TABLET PO SCH (09:25)
[2021-01-07] MEDS: LORAZEPAM 1 MG TABLET PO PRN (09:25)
[2021-01-07] MEDS: SEVELAMER CARBONATE 800 MG POWD.PACK PO SCH ×3 (09:25→17:12)
[2021-01-07] MEDS: FERROUS SULFATE (325 MG) 325 MG/TAB TABLET PO SCH ×2 (09:25→17:12)
[2021-01-07] MEDS: FAMOTIDINE (20 MG) 20 MG TABLET PO SCH (09:25)
[2021-01-07 09:34] LABS: PLATELET COUNT (AUTO) 144 /CMM (150-450)
[2021-01-07] MEDS: NYSTATIN TOP POWDER 15 GM BOTTLE TP SCH ×2 (09:35→17:00)
[2021-01-07] MEDS ORDERED: ALBUMIN 25% 25 GM in PREMIX 1 EA IV PRN (10:00)
--- NOTE | 2021-01-07 10:00 | NUR ---
RN NOTE SPOKE WITH FREIGHT DISPATCHER KSEHAV ABOUT ADMINISTERING MIDODRINE EARLY PER REQUEST OF DIALYSIS NURSE FOR PATIENT'S DIALYSIS. OKAY TO ADMIN.
[2021-01-07 12:00] VITALS: BP 114/45
--- NOTE | 2021-01-07 13:30 | NUR ---
RN NOTE PATIENT REQUESTED TO LEAVE AMA. EDUCATED PATIENT ON IMPORTANCE OF STAYING ADMITTED WELL THE POTENTIAL SIDE EFFECTS OF LEAVING WITHOUT BEING MEDICALLY CLEARED. PATIENT STILL REQUESTS TO LEAVE AMA. DR. MCMULLEN NOTIFIED.
[2021-01-07 16:00] VITALS: BP 121/62
--- NOTE | 2021-01-07 18:30 | NUR ---
RN NOTE PATIENT REFUSED PHOTOS FOR DUNCAN AMATO.
--- NOTE | 2021-01-07 19:21 | NUR ---
RN CLOSING NOTE PATIENT IS IN BED WITH HOB AT SEMI FOWLERS POSITION. PATIENT IS ON TRACH/VENT WITH NO SIGNS OF LABORED BREATHING. PATIENT IS AOX3. NO IV ACCESS. BED IS LOCKED IN THE LOWEST POSITION, 3 GUARD RAILS RAISED, CALL HART WITHIN REACH, AND ALL HOSPITAL SAFETY PRECAUTIONS ARE BEING FOLLOWED. ALL DUE MEDS GIVEN AND PATIENT REMAINED STABLE THROUGHOUT SHIFT. WILL ENDORSE TO PIN OR CLIP FASTENER RN FOR PANTERA.
--- NOTE | 2021-01-07 19:42 | NUR ---
RN NOTE RECEIVED PT IN BED, WITH TRACH ON VENT. NO SIGNS OF DISTRESS NOTED. DENIES ANY SOB/PAIN AT THIS TIME. O2 SAT AT 100%. TELE MONITOR SHOWS SR WITH HR OF 65. AWAITING TO BE DISCHARGE. ALL SAFETY MEASURES IMPLEMENTED PER PROTOCOL, CALL LIGHT WITHIN REACH, BED LOCKED IN LOWEST POSITION. SIDE RAILS UP X 2.
[2021-01-07 20:00] VITALS: BP 113/48
--- NOTE | 2021-01-07 20:45 | NUR ---
RN NOTE PT DISCHARGE TO [facility]. NO SIGNS OF DISTRESS NOTED. PICKED UP BY [id number] WITH RT BY [facility]. ALL BELONGINGS WERE SENT.
== END 2021-01-07 21:33 | disposition left against medical advice (07) | DRG 194 ==
LOC: ER 16:07 → TELE1 18:45
PROVIDERS: ADMIT Internal Medicine; ATTEND Internal Medicine
PROC: 5A1955Z Respiratory Ventilation, Greater than 96 Consecutive Hours (ICD-10-PCS; principal; 2021-01-02)
PROC: 5A1D70Z Performance of Urinary Filtration, Intermittent, Less than 6 Hours Per Day (ICD-10-PCS; 2021-01-03)
DX: I13.2 Hypertensive heart and chronic kidney disease with heart failure and with stage 5 chronic kidney disease, or end stage renal disease (principal); Z99.11 Dependence on respirator [ventilator] status; J96.10 Chronic respiratory failure, unspecified whether with hypoxia or hypercapnia; J44.9 Chronic obstructive pulmonary disease, unspecified; Z93.0 Tracheostomy status; R13.10 Dysphagia, unspecified; N18.6 End stage renal disease; E87.1 Hypo-osmolality and hyponatremia; I69.354 Hemiplegia and hemiparesis following cerebral infarction affecting left non-dominant side; I50.23 Acute on chronic systolic (congestive) heart failure; E78.5 Hyperlipidemia, unspecified; Z99.2 Dependence on renal dialysis; Z93.1 Gastrostomy status; D64.9 Anemia, unspecified; E11.22 Type 2 diabetes mellitus with diabetic chronic kidney disease; E66.01 Morbid (severe) obesity due to excess calories; E03.9 Hypothyroidism, unspecified; F32.9 Major depressive disorder, single episode, unspecified; Z87.39 Personal history of other diseases of the musculoskeletal system and connective tissue; Z20.822 Contact with and (suspected) exposure to COVID-19; Z79.4 Long term (current) use of insulin; Z79.51 Long term (current) use of inhaled steroids; Z79.890 Hormone replacement therapy; Z79.899 Other long term (current) drug therapy; Z79.01 Long term (current) use of anticoagulants; L30.4 Erythema intertrigo; L98.9 Disorder of the skin and subcutaneous tissue, unspecified; M89.9 Disorder of bone, unspecified; E27.40 Unspecified adrenocortical insufficiency; G90.8 Other disorders of autonomic nervous system; Z68.44 Body mass index [BMI] 60.0-69.9, adult; S31.000A Unspecified open wound of lower back and pelvis without penetration into retroperitoneum, initial encounter; S31.829A Unspecified open wound of left buttock, initial encounter; S31.819A Unspecified open wound of right buttock, initial encounter; S71.102A Unspecified open wound, left thigh, initial encounter; S71.101A Unspecified open wound, right thigh, initial encounter; X58.XXXA Exposure to other specified factors, initial encounter; Y92.199 Unspecified place in other specified residential institution as the place of occurrence of the external cause; S31.109A Unspecified open wound of abdominal wall, unspecified quadrant without penetration into peritoneal cavity, initial encounter
CPT/HCPCS: 31720; 36415; 71045-TC; 80048-TC; 82533; 82962-TC; 83735-TC; 84100-TC; 84439-TC; 84443-TC; 84484-TC; 85025-TC; 87081-TC; 90935-TC; 93307-TC; 94003-TC; 94760-TC; 94762-TC; 94799-TC; A4216; A4623; A6253; A7526; G0378; J1644; J1815; J2060; J7030; L8501; P9047; U0003

== ENCOUNTER 2021-09-16 16:36 | Emergency (ER) | payer MEDICAID ==
[~2021-09-16] VITALS: Ht 152.4 cm; Wt 178.3 kg
[~2021-09-16 16:36] MED LIST changes: -CRAN450C PO; +ZINC1CAP2 PO
--- NOTE | 2021-09-16 17:00 | NUR ---
BIB [facility] FROM SNF C/O CHEST TIGHTNESS X 1 HOUR. GIVEN ASPIRIN AND NITRO X2 GIVEN SPORTS PHYSIOTHERAPIST. AAOX4, ON MONITOR. POX 94% ON VENTILATOR. BREATHING EVEN AND UNLABORED.
--- NOTE | 2021-09-16 17:32 | NUR ---
radiology at bedside
--- NOTE | 2021-09-16 17:33 | NUR ---
CALLED FOR MIDLINE
--- NOTE | 2021-09-16 18:10 | NUR ---
MIDLINE BEING PLACED AT BEDSIDE
--- NOTE | 2021-09-16 18:51 | NUR ---
RT AT BEDSIDE
--- NOTE | 2021-09-16 20:26 | NUR ---
Patient does not wish to proceed with medical care recommended by Dr. Cox. Patient given information related to possible complications, up to and including , which could occur as a result of leaving the hospital at this time. Patient verbalizes understanding of risks involved due to leaving against medical advice. Patient has signed AMA form.
[2021-09-16 20:30] LABS: CALCIUM, SERUM 7.1 mg/dL (8.5-10.1); CARBON DIOXIDE 23 mmol/L (21-32); CHLORIDE 93 mmol/L (98-107); CREATININE 5.7 mg/dL (0.6-1.3); GLUCOSE 141 mg/dL (74-106); SODIUM SERUM 130 mmol/L (136-145); UREA NITROGEN, BLOOD 50 mg/dL (7-18)
[2021-09-16 20:47] LABS: BASOPHILS % (AUTO) 0.2 % (0.0-2.0); EOSINOPHILS % (AUTO) 0.1 % (0.0-6.0); HEMATOCRIT 30 % (33-45); HEMOGLOBIN 9.6 g/dL (11.5-14.8); LYMPHOCYTES # (AUTO) 0.4 K/uL (0.8-4.8); LYMPHOCYTES % (AUTO) 5.1 % (20.0-44.0); MEAN CORPUSCULAR HGB CONC 32 g/dl (31.0-36.0); MEAN CORPUSCULAR VOLUME 95 fL (82-100); MONOCYTES # (AUTO) 0.3 K/uL (0.1-1.30); MONOCYTES % (AUTO) 3.1 % (2.0-12.0); NEUTROPHILS # (AUTO) 7.7 K/uL (1.8-8.9); NEUTROPHILS % (AUTO) 91.5 % (43.0-81.0); PLATELET COUNT (AUTO) 126 K/uL (150-450); RED BLOOD CELL COUNT(AUTO) 3.15 MIL/uL (4.0-5.2); WHITE BLOOD COUNT (AUTO) 8.4 K/uL (4.3-11.0)
--- NOTE | 2021-09-16 21:38 | NUR ---
AMB. CALLED FOR TRANSFER; [facility], [place], [facility], [facility], [facility],
--- NOTE | 2021-09-17 02:18 | NUR ---
CALLED [facility] AGAIN. STILL NO AVAILABILITY
--- NOTE | 2021-09-17 02:33 | NUR ---
CALLED [facility]. NOT AVAILABLE UNIT
--- NOTE | 2021-09-17 02:43 | NUR ---
CALLED [facility]. ABLE TO TRANSPORT PT BUT NEEDS AUTHORIZATION PRIOR TO BOOKING. PT'S INSURANCE IS CURRENTLY CLOSE AND WONT BE ABLE TO GET AUTH UNTIL THEY OPEN IN THE MORNING PER ADMMITING DEPARTMENT.
--- NOTE | 2021-09-17 05:15 | NUR ---
pt cleaned. needs met
--- NOTE | 2021-09-17 13:11 | NUR ---
PT TRANSPORTED TO [facility] THEN WILL BE TRANSFERED BACK TO SNF. STABLE CONDITION.
[2021-09-17 13:12] VITALS: BP 115/64
== END 2021-09-17 13:12 | disposition home or self-care (01) ==
LOC: ER 17:04
DX: I12.0 Hypertensive chronic kidney disease with stage 5 chronic kidney disease or end stage renal disease (principal); E11.22 Type 2 diabetes mellitus with diabetic chronic kidney disease; N18.6 End stage renal disease; Z99.2 Dependence on renal dialysis; D63.1 Anemia in chronic kidney disease; E87.70 Fluid overload, unspecified; J81.1 Chronic pulmonary edema; Z98.890 Other specified postprocedural states; Z79.899 Other long term (current) drug therapy; Z79.4 Long term (current) use of insulin; Z79.01 Long term (current) use of anticoagulants
CPT/HCPCS: 31720 ×2; 36415; 71045; 80048; 83880; 84484; 85025; 93005 ×2; 94799; 99291; A4623